=== PATIENT | female | born 1955 | race Caucasian/White ===

== ENCOUNTER → 2017-12-04 10:25 | Outpatient (CLI) | payer BC, SELFPAY ==
--- NOTE | 2017-12-04 10:37 | RAD_ITS ---
STUDY: X-RAY - PELVIS REASON FOR EXAM: Female, 62 years old. Inflammatory polyarthropathy. TECHNIQUE: One view of the pelvis was obtained. COMPARISON: None. FINDINGS: There is a non-specific bowel gas pattern. Normal visualized soft tissue structures. Normal bilateral iliac wings, sacroiliac joints and visualized sacrum. Normal visualized bilateral superior and inferior pubic rami. There is narrowing with sclerosis of the pubic symphysis. Normal ischial tuberosities. Normal visualized right femoral head. There is osteoarthritic spur formation of the right acetabular rim. There is moderate articular joint space narrowing of the right hip. Normal visualized left femoral head. Normal left acetabulum. There is moderate articular joint space narrowing of the left hip. RAD/Pelvis 1 or 2 Views IMPRESSION: Osteoarthritis of both hip joints worse on the right side. Electronically Signed: Frankie Lares MD at 14:39 EST Tel [phone], Service support ,
[2017-12-04 12:28] LABS: Erythrocyte Sedimentation Rate 35 mm/hr (0-30)
[2017-12-04 12:31] LABS: Absolute Lymphocyte Count 2.29 X10^3/ul (0.83-4.51); Basophil# 0.04 X10^3/uL; Basophil% 0.5 % (0-1); Eosinophil# 0.17 X10^3/uL; Eosinophils% 2.1 % (0-5); Hematocrit 47.2 % (37-47); Hemoglobin 15.6 g/dl (12.0-15.0); Lymphocyte # 2.29 X10^3/ul (4.0); Lymphocyte % 28.3 % (19-41); Mean Corp Hgb Conc 33.1 g/gl (32-36); Mean Corpuscular Hgb 30.8 pg (27.0-32.0); Mean Corpuscular Volume 93.1 fL (81-99); Mean Platelet Vol. 10.9 fl (6.2-12.0); Monocyte# 0.59 X10^3/uL; Monocyte% 7.3 % (0-10); Neutrophil # 5.01 X10^3/uL (2.7-7.7); Neutrophil % 61.8 % (47-70); Platelet Count 245 K/mm3 (150-450); RBC Distribution Width CV 13.5 % (11.6-14.6); RBC Distribution Width SD 45.6 fl (35.1-43.9); Red Blood Count 5.07 M/mm3 (4.2-5.4)
[2017-12-04 12:33] LABS: AST(SGOT) 16 U/L (15-37); Alanine Aminotransfer ALT/SGPT 28 U/L (12-78); Albumin, Serum 4.3 g/dL (3.4-5.0); Alkaline Phosphatase 80 U/L (45-117); Anion Gap 10 (5-15); BUN 19 mg/dL (7-18); CRP 6.39 mg/L (0.0-3.0); Calcium,Total 9.2 mg/dL (8.5-10.1); Chloride 99 mmol/L (98-107); Creatinine, Serum 1.12 mg/dL (0.55-1.02); EST Glomerular Filtration Rate 52 mL/min (>60); Est Glom Filt Rate - Afr Amer 63 mL/min (>60); Globulin 4.4 g/dL (2.2-4.2); Potassium 3.9 mmol/L (3.5-5.1); Protein, Total 8.7 g/dL (6.4-8.2); Rheumatoid Factor < 10.0 IU/mL (<15); Sodium Level 135 mmol/L (136-145)
[2017-12-04 12:35] LABS: POSITIVE COUNT NO; POSITIVE DIFFERENTIAL NO; POSITIVE MORPHOLOGY NO
[2017-12-07 12:07] LABS: SJOGREN'S Anti-SS-A test < 0.2 AI (0.0-0.9); SJOGREN'S Anti-SS-B test < 0.2 AI (0.0-0.9)
[2017-12-12 08:59] LABS: CCP IgG Antibodies 8 units (0-19); HLA B27 Negative (.); Hep B Surface Antibodies Non Reactive (.); Hep C Antibodies 0.1 s/co ratio (0.0-0.9)
[2018-04-29 10:41] LABS: Glucose 95 mg/dL (70-110)
[2018-04-29 10:42] LABS: White Blood Count 8.1 K/mm3 (4.4-11.0)
[2018-04-29 10:43] LABS: ANTINUCLEAR ANTIBODIES DIRECT Negative (Negative); HEPATITIS B SURFACE AG Negative (Negative)
== END ==
PROVIDERS: Family Provider Internal Medicine; PCP Internal Medicine; Visit Provider Internal Medicine Rheumatology
DX: M06.4 Inflammatory polyarthropathy (principal); M79.7 Fibromyalgia; M21.40 Flat foot [pes planus] (acquired), unspecified foot; G25.0 Essential tremor; I10 Essential (primary) hypertension; E78.5 Hyperlipidemia, unspecified; K58.9 Irritable bowel syndrome, unspecified; F41.9 Anxiety disorder, unspecified; Z86.69 Personal history of other diseases of the nervous system and sense organs
CPT/HCPCS: 36415; 72170; 80053; 81374; 85025; 85652; 86038; 86140; 86200; 86235; 86431; 86706; 86803; 87340

== ENCOUNTER → 2018-05-04 10:57 | Outpatient (CLI) | payer BC, SELFPAY ==
[2018-05-04 12:20] LABS: Absolute Lymphocyte Count 2.64 X10^3/ul (0.83-4.51); Absolute Neutrophil Count 4.8 X10^3/uL (2.0-7.7); Basophil# 0.03 X10^3/uL; Basophil% 0.4 % (0-1); Eosinophil# 0.29 X10^3/uL; Eosinophils% 3.5 % (0-5); Hemoglobin 15.3 g/dl (12.0-15.0); Lymphocyte # 2.64 X10^3/ul (4.0); Lymphocyte % 31.8 % (19-41); Mean Corp Hgb Conc 32.6 g/gl (32-36); Mean Corpuscular Hgb 30.7 pg (27.0-32.0); Mean Corpuscular Volume 94.4 fL (81-99); Mean Platelet Vol. 10.5 fl (6.2-12.0); Monocyte# 0.56 X10^3/uL; Monocyte% 6.7 % (0-10); Neutrophil # 4.78 X10^3/uL (2.7-7.7); Neutrophil % 57.6 % (47-70); Platelet Count 264 K/mm3 (150-450); RBC Distribution Width CV 13.4 % (11.6-14.6); Red Blood Count 4.98 M/mm3 (4.2-5.4); White Blood Count 8.3 K/mm3 (4.4-11.0)
[2018-05-04 12:25] LABS: POSITIVE COUNT NO; POSITIVE DIFFERENTIAL NO; POSITIVE MORPHOLOGY NO
[2018-05-04 12:33] LABS: AST(SGOT) 20 U/L (15-37); Alanine Aminotransfer ALT/SGPT 30 U/L (13-56); Albumin, Serum 4.1 g/dL (3.2-5.0); Alkaline Phosphatase 89 U/L (45-117); Anion Gap 9 (5-15); BUN 16 mg/dL (7-18); BUN/Creat Ratio 13.8 RATIO (10-20); Calcium,Total 9.2 mg/dL (8.5-10.1); Chloride 96 mmol/L (98-107); Creatinine, Serum 1.16 mg/dL (0.55-1.02); EST Glomerular Filtration Rate 50 mL/min (>60); Est Glom Filt Rate - Afr Amer 61 mL/min (>60); Glucose 95 mg/dL (74-106); Potassium 4.9 mmol/L (3.5-5.1); Protein, Total 8.1 g/dL (6.4-8.2); Sodium Level 132 mmol/L (136-145)
== END ==
PROVIDERS: Family Provider Internal Medicine; PCP Internal Medicine; Visit Provider Internal Medicine Rheumatology
DX: M06.4 Inflammatory polyarthropathy (principal); M79.7 Fibromyalgia; M21.40 Flat foot [pes planus] (acquired), unspecified foot; K58.9 Irritable bowel syndrome, unspecified; I10 Essential (primary) hypertension; E78.5 Hyperlipidemia, unspecified; G25.0 Essential tremor; F41.9 Anxiety disorder, unspecified; Z86.69 Personal history of other diseases of the nervous system and sense organs
CPT/HCPCS: 36415; 80053; 85025

== ENCOUNTER → 2018-07-07 10:39 | Outpatient (CLI) | payer BC, SELFPAY ==
[2018-07-07 12:16] LABS: Absolute Lymphocyte Count 2.29 X10^3/ul (0.83-4.51); Absolute Neutrophil Count 5.2 X10^3/uL (2.0-7.7); Basophil# 0.04 X10^3/uL; Basophil% 0.5 % (0-1); Eosinophil# 0.18 X10^3/uL; Eosinophils% 2.1 % (0-5); Hematocrit 47.7 % (37-47); Hemoglobin 15.9 g/dl (12.0-15.0); Lymphocyte # 2.29 X10^3/ul (4.0); Lymphocyte % 27.2 % (19-41); Mean Corp Hgb Conc 33.3 g/gl (32-36); Mean Corpuscular Hgb 31.1 pg (27.0-32.0); Mean Corpuscular Volume 93.2 fL (81-99); Mean Platelet Vol. 11.1 fl (6.2-12.0); Monocyte# 0.72 X10^3/uL; Monocyte% 8.5 % (0-10); Neutrophil # 5.17 X10^3/uL (2.7-7.7); Neutrophil % 61.3 % (47-70); POSITIVE COUNT NO; POSITIVE DIFFERENTIAL NO; POSITIVE MORPHOLOGY NO; Platelet Count 249 K/mm3 (150-450); RBC Distribution Width CV 13.2 % (11.6-14.6); RBC Distribution Width SD 44.2 fl (35.1-43.9); Red Blood Count 5.12 M/mm3 (4.2-5.4); White Blood Count 8.4 K/mm3 (4.4-11.0)
[2018-07-07 12:33] LABS: AST(SGOT) 18 U/L (15-37); Alanine Aminotransfer ALT/SGPT 28 U/L (13-56); Alkaline Phosphatase 87 U/L (45-117); Anion Gap 7 (5-15); BUN 11 mg/dL (7-18); BUN/Creat Ratio 9.6 RATIO (10-20); Calcium,Total 8.9 mg/dL (8.5-10.1); Chloride 97 mmol/L (98-107); Creatinine, Serum 1.15 mg/dL (0.55-1.02); EST Glomerular Filtration Rate 51 mL/min (>60); Est Glom Filt Rate - Afr Amer 61 mL/min (>60); Globulin 4.1 g/dL (2.2-4.2); Glucose 91 mg/dL (74-106); Protein, Total 8.1 g/dL (6.4-8.2); Sodium Level 131 mmol/L (136-145)
== END ==
PROVIDERS: Family Provider Internal Medicine; PCP Internal Medicine; Visit Provider Internal Medicine Rheumatology
DX: M06.4 Inflammatory polyarthropathy (principal); M79.7 Fibromyalgia; M21.40 Flat foot [pes planus] (acquired), unspecified foot
CPT/HCPCS: 36415; 80053; 85025

== ENCOUNTER → 2018-09-27 11:40 | Outpatient (CLI) | payer BC, SELFPAY ==
[2018-09-27 14:38] LABS: Absolute Lymphocyte Count 2.65 X10^3/ul (0.83-4.51); Absolute Neutrophil Count 4.9 X10^3/uL (2.0-7.7); Basophil# 0.03 X10^3/uL; Basophil% 0.3 % (0-1); Eosinophil# 0.25 X10^3/uL; Eosinophils% 2.9 % (0-5); Hematocrit 45.7 % (37-47); Hemoglobin 14.6 g/dl (12.0-15.0); Lymphocyte # 2.65 X10^3/ul (4.0); Lymphocyte % 30.6 % (19-41); Mean Corp Hgb Conc 31.9 g/gl (32-36); Mean Corpuscular Hgb 30.5 pg (27.0-32.0); Mean Corpuscular Volume 95.4 fL (81-99); Mean Platelet Vol. 11.1 fl (6.2-12.0); Monocyte# 0.82 X10^3/uL; Monocyte% 9.5 % (0-10); Neutrophil # 4.88 X10^3/uL (2.7-7.7); Neutrophil % 56.4 % (47-70); POSITIVE COUNT NO; POSITIVE DIFFERENTIAL NO; POSITIVE MORPHOLOGY NO; Platelet Count 238 K/mm3 (150-450); RBC Distribution Width SD 47.5 fl (35.1-43.9); Red Blood Count 4.79 M/mm3 (4.2-5.4); White Blood Count 8.7 K/mm3 (4.4-11.0)
[2018-09-27 14:55] LABS: AST(SGOT) 19 U/L (15-37); Alanine Aminotransfer ALT/SGPT 32 U/L (13-56); Alkaline Phosphatase 89 U/L (45-117); Anion Gap 5 (5-15); BUN 15 mg/dL (7-18); BUN/Creat Ratio 14.4 RATIO (10-20); Calcium,Total 8.8 mg/dL (8.5-10.1); Chloride 102 mmol/L (98-107); Creatinine, Serum 1.04 mg/dL (0.55-1.02); EST Glomerular Filtration Rate 57 mL/min (>60); Est Glom Filt Rate - Afr Amer 69 mL/min (>60); Glucose 91 mg/dL (74-106); Potassium 5.2 mmol/L (3.5-5.1); Sodium Level 136 mmol/L (136-145)
== END ==
PROVIDERS: Family Provider Internal Medicine; PCP Internal Medicine; Referring Provider Internal Medicine Rheumatology; Visit Provider Internal Medicine Rheumatology
DX: M06.4 Inflammatory polyarthropathy (principal); M79.7 Fibromyalgia; M21.40 Flat foot [pes planus] (acquired), unspecified foot; K58.9 Irritable bowel syndrome, unspecified; F41.9 Anxiety disorder, unspecified
CPT/HCPCS: 36415; 80053; 85025

== ENCOUNTER → 2018-12-28 11:56 | Outpatient (CLI) | payer BC, SELFPAY ==
[2018-12-28 14:05] LABS: Absolute Lymphocyte Count 2.52 X10^3/ul (0.83-4.51); Absolute Neutrophil Count 4.8 X10^3/uL (2.0-7.7); Basophil# 0.02 X10^3/uL; Basophil% 0.2 % (0-1); Eosinophil# 0.28 X10^3/uL; Eosinophils% 3.4 % (0-5); Hematocrit 47.8 % (37-47); Hemoglobin 14.9 g/dl (12.0-15.0); Lymphocyte # 2.52 X10^3/ul (4.0); Mean Corp Hgb Conc 31.2 g/gl (32-36); Mean Corpuscular Hgb 29.8 pg (27.0-32.0); Mean Corpuscular Volume 95.6 fL (81-99); Mean Platelet Vol. 10.9 fl (6.2-12.0); Monocyte# 0.47 X10^3/uL; Monocyte% 5.8 % (0-10); Neutrophil # 4.81 X10^3/uL (2.7-7.7); Neutrophil % 59.4 % (47-70); POSITIVE COUNT NO; POSITIVE DIFFERENTIAL NO; POSITIVE MORPHOLOGY NO; Platelet Count 231 K/mm3 (150-450); RBC Distribution Width CV 13.6 % (11.6-14.6); RBC Distribution Width SD 47.5 fl (35.1-43.9); White Blood Count 8.1 K/mm3 (4.4-11.0)
[2018-12-28 14:19] LABS: AST(SGOT) 19 U/L (15-37); Alanine Aminotransfer ALT/SGPT 30 U/L (13-56); Albumin, Serum 4.2 g/dL (3.2-5.0); Alkaline Phosphatase 82 U/L (45-117); Anion Gap 7 (5-15); BUN 17 mg/dL (7-18); BUN/Creat Ratio 16.7 RATIO (10-20); Calcium,Total 8.7 mg/dL (8.5-10.1); Chloride 101 mmol/L (98-107); Creatinine, Serum 1.02 mg/dL (0.55-1.02); EST Glomerular Filtration Rate 58 mL/min (>60); Est Glom Filt Rate - Afr Amer 70 mL/min (>60); Glucose 91 mg/dL (74-106); Potassium 4.8 mmol/L (3.5-5.1); Protein, Total 8.2 g/dL (6.4-8.2); Sodium Level 135 mmol/L (136-145)
== END ==
PROVIDERS: Family Provider Internal Medicine; PCP Internal Medicine; Referring Provider Internal Medicine Rheumatology; Visit Provider Internal Medicine Rheumatology
DX: M06.4 Inflammatory polyarthropathy (principal); M79.7 Fibromyalgia; M21.40 Flat foot [pes planus] (acquired), unspecified foot; K58.9 Irritable bowel syndrome, unspecified; F41.9 Anxiety disorder, unspecified; I10 Essential (primary) hypertension; E78.5 Hyperlipidemia, unspecified; G25.0 Essential tremor; H35.30 Unspecified macular degeneration; Z86.69 Personal history of other diseases of the nervous system and sense organs
CPT/HCPCS: 36415; 80053; 85025

== ENCOUNTER → 2019-04-08 10:45 | Outpatient (CLI) | payer BC, SELFPAY ==
[2019-04-08 12:44] LABS: Absolute Lymphocyte Count 1.95 X10^3/ul (0.83-4.51); Absolute Neutrophil Count 3.2 X10^3/uL (2.0-7.7); Basophil# 0.02 X10^3/uL; Basophil% 0.3 % (0-1); Eosinophil# 0.25 X10^3/uL; Eosinophils% 4.1 % (0-5); Hematocrit 45.3 % (37-47); Hemoglobin 14.9 g/dl (12.0-15.0); Lymphocyte # 1.95 X10^3/ul (4.0); Mean Corp Hgb Conc 32.9 g/gl (32-36); Mean Corpuscular Hgb 30.4 pg (27.0-32.0); Mean Corpuscular Volume 92.4 fL (81-99); Mean Platelet Vol. 11.4 fl (6.2-12.0); Monocyte# 0.71 X10^3/uL; Monocyte% 11.6 % (0-10); Neutrophil # 3.15 X10^3/uL (2.7-7.7); Neutrophil % 51.7 % (47-70); Platelet Count 220 K/mm3 (150-450); RBC Distribution Width CV 13.6 % (11.6-14.6); RBC Distribution Width SD 45.2 fl (35.1-43.9); White Blood Count 6.1 K/mm3 (4.4-11.0)
[2019-04-08 12:47] LABS: POSITIVE COUNT NO; POSITIVE DIFFERENTIAL NO; POSITIVE MORPHOLOGY NO
[2019-04-08 13:11] LABS: AST(SGOT) 20 U/L (15-37); Alanine Aminotransfer ALT/SGPT 29 U/L (13-56); Albumin, Serum 3.9 g/dL (3.2-5.0); Alkaline Phosphatase 76 U/L (45-117); Anion Gap 7 (5-15); BUN 19 mg/dL (7-18); Calcium,Total 9.2 mg/dL (8.5-10.1); Chloride 100 mmol/L (98-107); EST Glomerular Filtration Rate 59 mL/min (>60); Est Glom Filt Rate - Afr Amer 72 mL/min (>60); Glucose 98 mg/dL (74-106); Potassium 4.3 mmol/L (3.5-5.1); Protein, Total 7.9 g/dL (6.4-8.2); Sodium Level 136 mmol/L (136-145)
== END ==
PROVIDERS: Family Provider Internal Medicine; PCP Internal Medicine; Referring Provider Internal Medicine Rheumatology; Visit Provider Internal Medicine Rheumatology
DX: M06.4 Inflammatory polyarthropathy (principal); M79.7 Fibromyalgia; Z79.899 Other long term (current) drug therapy
CPT/HCPCS: 36415; 80053; 85025

== ENCOUNTER → 2019-06-27 11:05 | Outpatient (CLI) | payer BC, SELFPAY ==
[2019-06-27 12:17] LABS: Absolute Lymphocyte Count 2.36 X10^3/uL (0.83-4.51); Absolute Neutrophil Count 6.4 X10^3/uL (2.0-7.7); Basophil# 0.07 X10^3/uL; Basophil% 0.7 % (0-1); Hematocrit 46.9 % (37-47); Hemoglobin 14.9 g/dL (12.0-15.0); Lymphocyte # 2.36 X10^3/ul (4.0); Lymphocyte % 23.6 % (19-41); Mean Corp Hgb Conc 31.8 g/dL (32-36); Mean Corpuscular Hgb 30.3 pg (27.0-32.0); Mean Corpuscular Volume 95.3 fL (81-99); Mean Platelet Vol. 10.7 fl (6.2-12.0); Monocyte# 0.91 X10^3/uL; Monocyte% 9.1 % (0-10); NRBC Flagged by Analyzer 0 % (0-5); Neutrophil # 6.44 X10^3/uL (2.7-7.7); Neutrophil % 64.2 % (47-70); Platelet Count 235 K/mm3 (150-450); RBC Distribution Width CV 13.1 % (11.6-14.6); RBC Distribution Width SD 45.9 fl (35.1-43.9); Red Blood Count 4.92 M/mm3 (4.2-5.4)
[2019-06-27 12:56] LABS: AST(SGOT) 16 U/L (15-37); Alanine Aminotransfer ALT/SGPT 28 U/L (13-56); Alkaline Phosphatase 76 U/L (45-117); Anion Gap 4 (5-15); BUN 20 mg/dL (7-18); BUN/Creat Ratio 20.6 RATIO (10-20); Calcium,Total 9.3 mg/dL (8.5-10.1); Chloride 102 mmol/L (98-107); Creatinine, Serum 0.97 mg/dL (0.55-1.02); EST Glomerular Filtration Rate 61 mL/min (>60); Est Glom Filt Rate - Afr Amer 74 mL/min (>60); Globulin 3.9 g/dL (2.2-4.2); Glucose 92 mg/dL (74-106); Potassium 4.6 mmol/L (3.5-5.1); Protein, Total 7.9 g/dL (6.4-8.2); Sodium Level 137 mmol/L (136-145)
== END ==
PROVIDERS: Family Provider Internal Medicine; PCP Internal Medicine; Referring Provider Internal Medicine Rheumatology; Visit Provider Internal Medicine Rheumatology
DX: M06.4 Inflammatory polyarthropathy (principal); I10 Essential (primary) hypertension; E78.5 Hyperlipidemia, unspecified; M79.7 Fibromyalgia; G25.0 Essential tremor; H35.30 Unspecified macular degeneration; K58.9 Irritable bowel syndrome, unspecified; M21.40 Flat foot [pes planus] (acquired), unspecified foot; G43.909 Migraine, unspecified, not intractable, without status migrainosus; F41.9 Anxiety disorder, unspecified; Z79.899 Other long term (current) drug therapy
CPT/HCPCS: 36415; 80053; 85025

== ENCOUNTER → 2019-09-22 13:43 | Outpatient (CLI) | payer BC, SELFPAY ==
[2019-09-22 15:31] LABS: Absolute Lymphocyte Count 2.56 X10^3/uL (0.83-4.51); Absolute Neutrophil Count 5.4 X10^3/uL (2.0-7.7); Basophil# 0.08 X10^3/uL; Basophil% 0.9 % (0-1); Eosinophil# 0.22 X10^3/uL; Eosinophils% 2.4 % (0-5); Hematocrit 46.2 % (37-47); Hemoglobin 14.9 g/dL (12.0-15.0); Lymphocyte # 2.56 X10^3/ul (4.0); Lymphocyte % 28.3 % (19-41); Mean Corp Hgb Conc 32.3 g/dL (32-36); Mean Corpuscular Hgb 30.7 pg (27.0-32.0); Mean Corpuscular Volume 95.1 fL (81-99); Mean Platelet Vol. 10.4 fl (6.2-12.0); Monocyte% 8.8 % (0-10); NRBC Flagged by Analyzer 0 % (0-5); Neutrophil # 5.37 X10^3/uL (2.7-7.7); Neutrophil % 59.3 % (47-70); Platelet Count 253 K/mm3 (150-450); RBC Distribution Width SD 45.5 fl (35.1-43.9); Red Blood Count 4.86 M/mm3 (4.2-5.4); White Blood Count 9.1 K/mm3 (4.4-11.0)
[2019-09-22 15:46] LABS: AST(SGOT) 17 U/L (15-37); Alanine Aminotransfer ALT/SGPT 29 U/L (13-56); Alkaline Phosphatase 80 U/L (45-117); Anion Gap 9 (5-15); BUN 14 mg/dL (7-18); BUN/Creat Ratio 15.5 RATIO (10-20); Calcium,Total 8.8 mg/dL (8.5-10.1); Chloride 104 mmol/L (98-107); Creatinine, Serum 0.91 mg/dL (0.55-1.02); EST Glomerular Filtration Rate 66 mL/min (>60); Est Glom Filt Rate - Afr Amer 80 mL/min (>60); Glucose 78 mg/dL (74-106); Potassium 4.2 mmol/L (3.5-5.1); Sodium Level 139 mmol/L (136-145)
== END ==
PROVIDERS: Family Provider Internal Medicine; PCP Internal Medicine; Referring Provider Internal Medicine Rheumatology; Visit Provider Internal Medicine Rheumatology
DX: M06.4 Inflammatory polyarthropathy (principal); M79.7 Fibromyalgia; I10 Essential (primary) hypertension; E78.5 Hyperlipidemia, unspecified; M21.40 Flat foot [pes planus] (acquired), unspecified foot; K58.9 Irritable bowel syndrome, unspecified; G25.0 Essential tremor; H35.30 Unspecified macular degeneration; G43.909 Migraine, unspecified, not intractable, without status migrainosus; F41.9 Anxiety disorder, unspecified; Z79.899 Other long term (current) drug therapy
CPT/HCPCS: 36415; 80053; 85025

== ENCOUNTER → 2019-12-30 13:38 | Outpatient (CLI) | payer MEDICARE, BC, SELFPAY ==
[2019-12-30 15:49] LABS: Absolute Lymphocyte Count 2.21 X10^3/uL (0.83-4.51); Absolute Neutrophil Count 5.8 X10^3/uL (2.0-7.7); Basophil# 0.06 X10^3/uL; Basophil% 0.7 % (0-1); Eosinophil# 0.23 X10^3/uL; Eosinophils% 2.6 % (0-5); Hemoglobin 14.4 g/dL (12.0-15.0); Lymphocyte # 2.21 X10^3/ul (4.0); Lymphocyte % 24.6 % (19-41); Mean Corp Hgb Conc 31.3 g/dL (32-36); Mean Corpuscular Hgb 29.5 pg (27.0-32.0); Mean Corpuscular Volume 94.3 fL (81-99); Mean Platelet Vol. 11.3 fl (6.2-12.0); Monocyte# 0.67 X10^3/uL; Monocyte% 7.5 % (0-10); NRBC Flagged by Analyzer 0 % (0-5); Neutrophil # 5.78 X10^3/uL (2.7-7.7); Neutrophil % 64.2 % (47-70); Platelet Count 220 K/mm3 (150-450); RBC Distribution Width CV 12.9 % (11.6-14.6); RBC Distribution Width SD 44.4 fl (35.1-43.9); Red Blood Count 4.88 M/mm3 (4.2-5.4)
[2019-12-30 16:04] LABS: AST(SGOT) 15 U/L (15-37); Alanine Aminotransfer ALT/SGPT 25 U/L (13-56); Albumin, Serum 4.1 g/dL (3.2-5.0); Alkaline Phosphatase 83 U/L (45-117); Anion Gap 7 (5-15); BUN 10 mg/dL (7-18); BUN/Creat Ratio 10.2 RATIO (10-20); Calcium,Total 8.9 mg/dL (8.5-10.1); Chloride 102 mmol/L (98-107); Creatinine, Serum 0.98 mg/dL (0.55-1.02); EST Glomerular Filtration Rate 60 mL/min (>60); Est Glom Filt Rate - Afr Amer 73 mL/min (>60); Glucose 85 mg/dL (74-106); Protein, Total 8.1 g/dL (6.4-8.2); Sodium Level 137 mmol/L (136-145)
== END ==
PROVIDERS: PCP Internal Medicine; Referring Provider Internal Medicine Rheumatology; Visit Provider Internal Medicine Rheumatology
DX: M06.4 Inflammatory polyarthropathy (principal); M79.7 Fibromyalgia; M21.40 Flat foot [pes planus] (acquired), unspecified foot; I10 Essential (primary) hypertension; E78.5 Hyperlipidemia, unspecified; G25.0 Essential tremor; K58.9 Irritable bowel syndrome, unspecified; H35.30 Unspecified macular degeneration; G43.909 Migraine, unspecified, not intractable, without status migrainosus; F41.9 Anxiety disorder, unspecified; Z79.899 Other long term (current) drug therapy
CPT/HCPCS: 36415; 80053; 85025

== ENCOUNTER → 2020-05-08 14:12 | Outpatient (CLI) | payer MEDICARE, BC, SELFPAY ==
[2020-05-08 18:08] LABS: Absolute Lymphocyte Count 2.33 X10^3/uL (0.83-4.51); Absolute Neutrophil Count 6.7 X10^3/uL (2.0-7.7); Basophil# 0.04 X10^3/uL; Basophil% 0.4 % (0-1); Eosinophil# 0.21 X10^3/uL; Eosinophils% 2.1 % (0-5); Hematocrit 47.9 % (37-47); Hemoglobin 15.4 g/dL (12.0-15.0); Lymphocyte # 2.33 X10^3/ul (4.0); Mean Corp Hgb Conc 32.2 g/dL (32-36); Mean Corpuscular Hgb 30.9 pg (27.0-32.0); Mean Platelet Vol. 11.1 fl (6.2-12.0); Monocyte# 0.83 X10^3/uL; Monocyte% 8.2 % (0-10); NRBC Flagged by Analyzer 0 % (0-5); Neutrophil # 6.69 X10^3/uL (2.7-7.7); Neutrophil % 65.8 % (47-70); Platelet Count 265 K/mm3 (150-450); RBC Distribution Width CV 13.1 % (11.6-14.6); Red Blood Count 4.99 M/mm3 (4.2-5.4); White Blood Count 10.2 K/mm3 (4.4-11.0)
[2020-05-08 18:33] LABS: AST(SGOT) 14 U/L (15-37); Alanine Aminotransfer ALT/SGPT 27 U/L (13-56); Albumin, Serum 4.3 g/dL (3.2-5.0); Alkaline Phosphatase 74 U/L (45-117); Anion Gap 8 (5-15); BUN 19 mg/dL (7-18); BUN/Creat Ratio 16.7 RATIO (10-20); Calcium,Total 8.9 mg/dL (8.5-10.1); Chloride 100 mmol/L (98-107); Creatinine, Serum 1.14 mg/dL (0.55-1.02); EST Glomerular Filtration Rate 51 mL/min (>60); Est Glom Filt Rate - Afr Amer 61 mL/min (>60); Globulin 4.1 g/dL (2.2-4.2); Glucose 90 mg/dL (74-106); Potassium 3.7 mmol/L (3.5-5.1); Protein, Total 8.4 g/dL (6.4-8.2); Sodium Level 135 mmol/L (136-145)
== END ==
PROVIDERS: PCP Internal Medicine; Referring Provider Internal Medicine Rheumatology; Visit Provider Internal Medicine Rheumatology
DX: M06.4 Inflammatory polyarthropathy (principal); M79.7 Fibromyalgia; M18.12 Unilateral primary osteoarthritis of first carpometacarpal joint, left hand; M21.40 Flat foot [pes planus] (acquired), unspecified foot; K58.9 Irritable bowel syndrome, unspecified; I10 Essential (primary) hypertension; E78.5 Hyperlipidemia, unspecified; G25.0 Essential tremor; H35.30 Unspecified macular degeneration; G43.909 Migraine, unspecified, not intractable, without status migrainosus; F41.9 Anxiety disorder, unspecified; Z79.899 Other long term (current) drug therapy
CPT/HCPCS: 36415; 80053; 85025

== ENCOUNTER → 2020-08-03 14:19 | Outpatient (CLI) | payer MEDICARE, BC, SELFPAY ==
[2020-08-03 18:14] LABS: Absolute Lymphocyte Count 2.28 X10^3/uL (0.83-4.51); Absolute Neutrophil Count 4.2 X10^3/uL (2.0-7.7); Basophil# 0.04 X10^3/uL; Basophil% 0.5 % (0-1); Eosinophil# 0.25 X10^3/uL; Eosinophils% 3.4 % (0-5); Hematocrit 47.9 % (37-47); Hemoglobin 14.8 g/dL (12.0-15.0); Lymphocyte # 2.28 X10^3/ul (4.0); Lymphocyte % 30.6 % (19-41); Mean Corp Hgb Conc 30.9 g/dL (32-36); Mean Corpuscular Hgb 30.3 pg (27.0-32.0); Mean Corpuscular Volume 98.2 fL (81-99); Mean Platelet Vol. 11.2 fl (6.2-12.0); Monocyte# 0.62 X10^3/uL; Monocyte% 8.3 % (0-10); NRBC Flagged by Analyzer 0 % (0-5); Neutrophil # 4.24 X10^3/uL (2.7-7.7); Neutrophil % 56.9 % (47-70); Platelet Count 242 K/mm3 (150-450); RBC Distribution Width CV 13.1 % (11.6-14.6); RBC Distribution Width SD 46.8 fl (35.1-43.9); Red Blood Count 4.88 M/mm3 (4.2-5.4); White Blood Count 7.5 K/mm3 (4.4-11.0)
[2020-08-03 18:30] LABS: ALB/GLOB Ratio 1.1 RATIO (0.9-2.4); AST(SGOT) 24 U/L (15-37); Alanine Aminotransfer ALT/SGPT 39 U/L (13-56); Albumin, Serum 4.2 g/dL (3.2-5.0); Alkaline Phosphatase 78 U/L (45-117); Anion Gap 5 (5-15); BUN 14 mg/dL (7-18); BUN/Creat Ratio 14.3 RATIO (10-20); Calcium,Total 8.8 mg/dL (8.5-10.1); Chloride 100 mmol/L (98-107); Creatinine, Serum 0.98 mg/dL (0.55-1.02); EST Glomerular Filtration Rate 60 mL/min (>60); Est Glom Filt Rate - Afr Amer 73 mL/min (>60); Globulin 3.8 g/dL (2.2-4.2); Glucose 78 mg/dL (74-106); Sodium Level 134 mmol/L (136-145)
== END ==
PROVIDERS: PCP Internal Medicine; Referring Provider Internal Medicine Rheumatology; Visit Provider Internal Medicine Rheumatology
DX: M06.4 Inflammatory polyarthropathy (principal); M79.7 Fibromyalgia; M18.12 Unilateral primary osteoarthritis of first carpometacarpal joint, left hand; M21.40 Flat foot [pes planus] (acquired), unspecified foot; K58.9 Irritable bowel syndrome, unspecified; I10 Essential (primary) hypertension; E78.5 Hyperlipidemia, unspecified; G25.0 Essential tremor; H35.30 Unspecified macular degeneration; G43.909 Migraine, unspecified, not intractable, without status migrainosus; F41.9 Anxiety disorder, unspecified; Z79.899 Other long term (current) drug therapy
CPT/HCPCS: 36415; 80053; 85025

== ENCOUNTER → 2020-10-23 14:18 | Outpatient (CLI) | payer MEDICARE, BC, SELFPAY ==
[2020-10-23 17:50] LABS: Absolute Neutrophil Count 4.6 X10^3/uL (2.0-7.7); Basophil# 0.04 X10^3/uL; Basophil% 0.5 % (0-1); Eosinophil# 0.25 X10^3/uL; Eosinophils% 2.9 % (0-5); Hematocrit 42.7 % (37-47); Hemoglobin 13.3 g/dL (12.0-15.0); Lymphocyte % 34.6 % (19-41); Mean Corp Hgb Conc 31.1 g/dL (32-36); Mean Corpuscular Hgb 29.5 pg (27.0-32.0); Mean Corpuscular Volume 94.7 fL (81-99); Mean Platelet Vol. 10.4 fl (6.2-12.0); Monocyte# 0.71 X10^3/uL; Monocyte% 8.2 % (0-10); NRBC Flagged by Analyzer 0 % (0-5); Neutrophil # 4.63 X10^3/uL (2.7-7.7); Neutrophil % 53.5 % (47-70); Platelet Count 252 K/mm3 (150-450); RBC Distribution Width CV 13.2 % (11.6-14.6); RBC Distribution Width SD 46.8 fl (35.1-43.9); Red Blood Count 4.51 M/mm3 (4.2-5.4); White Blood Count 8.7 K/mm3 (4.4-11.0)
[2020-10-23 18:10] LABS: AST(SGOT) 15 U/L (15-37); Alanine Aminotransfer ALT/SGPT 28 U/L (13-56); Alkaline Phosphatase 71 U/L (45-117); Anion Gap 9 (5-15); BUN 21 mg/dL (7-18); BUN/Creat Ratio 21.2 RATIO (10-20); Calcium,Total 8.7 mg/dL (8.5-10.1); Chloride 103 mmol/L (98-107); Creatinine, Serum 0.99 mg/dL (0.55-1.02); EST Glomerular Filtration Rate 60 mL/min (>60); Est Glom Filt Rate - Afr Amer 72 mL/min (>60); Glucose 77 mg/dL (74-106); Potassium 4.1 mmol/L (3.5-5.1); Sodium Level 136 mmol/L (136-145)
== END ==
PROVIDERS: PCP Internal Medicine; Referring Provider Internal Medicine Rheumatology; Visit Provider Internal Medicine Rheumatology
DX: M06.4 Inflammatory polyarthropathy (principal); M79.7 Fibromyalgia; M18.12 Unilateral primary osteoarthritis of first carpometacarpal joint, left hand; M21.40 Flat foot [pes planus] (acquired), unspecified foot; K58.9 Irritable bowel syndrome, unspecified; I10 Essential (primary) hypertension; E78.5 Hyperlipidemia, unspecified; G25.0 Essential tremor; H35.30 Unspecified macular degeneration; G43.909 Migraine, unspecified, not intractable, without status migrainosus; F41.9 Anxiety disorder, unspecified; Z79.899 Other long term (current) drug therapy
CPT/HCPCS: 36415; 80053; 85025

== ENCOUNTER → 2021-01-25 13:45 | Outpatient (CLI) | payer MEDICARE, BC, SELFPAY ==
[2021-01-25 15:25] LABS: Absolute Lymphocyte Count 2.64 X10^3/uL (0.83-4.51); Basophil# 0.06 X10^3/uL; Basophil% 0.6 % (0-1); Eosinophil# 0.24 X10^3/uL; Eosinophils% 2.5 % (0-5); Hematocrit 46.8 % (37-47); Hemoglobin 14.8 g/dL (12.0-15.0); Lymphocyte # 2.64 X10^3/ul (4.0); Mean Corp Hgb Conc 31.6 g/dL (32-36); Mean Corpuscular Hgb 30.3 pg (27.0-32.0); Mean Corpuscular Volume 95.7 fL (81-99); Mean Platelet Vol. 10.2 fl (6.2-12.0); Monocyte# 0.85 X10^3/uL; Monocyte% 8.7 % (0-10); NRBC Flagged by Analyzer 0 % (0-5); Neutrophil # 5.96 X10^3/uL (2.7-7.7); Neutrophil % 60.9 % (47-70); Platelet Count 261 K/mm3 (150-450); RBC Distribution Width CV 12.4 % (11.6-14.6); RBC Distribution Width SD 43.8 fl (35.1-43.9); Red Blood Count 4.89 M/mm3 (4.2-5.4); White Blood Count 9.8 K/mm3 (4.4-11.0)
[2021-01-25 15:38] LABS: AST(SGOT) 16 U/L (15-37); Alanine Aminotransfer ALT/SGPT 34 U/L (13-56); Albumin, Serum 4.1 g/dL (3.2-5.0); Alkaline Phosphatase 71 U/L (45-117); Anion Gap 9 (5-15); BUN 23 mg/dL (7-18); BUN/Creat Ratio 21.9 RATIO (10-20); Calcium,Total 9.4 mg/dL (8.5-10.1); Chloride 101 mmol/L (98-107); Creatinine, Serum 1.05 mg/dL (0.55-1.02); EST Glomerular Filtration Rate 56 mL/min (>60); Est Glom Filt Rate - Afr Amer 67 mL/min (>60); Glucose 99 mg/dL (74-106); Potassium 4.6 mmol/L (3.5-5.1); Protein, Total 8.1 g/dL (6.4-8.2); Sodium Level 135 mmol/L (136-145)
== END ==
PROVIDERS: PCP Internal Medicine; Referring Provider Internal Medicine Rheumatology; Visit Provider Internal Medicine Rheumatology
DX: M06.4 Inflammatory polyarthropathy (principal); M79.7 Fibromyalgia; M18.12 Unilateral primary osteoarthritis of first carpometacarpal joint, left hand; M21.40 Flat foot [pes planus] (acquired), unspecified foot; I10 Essential (primary) hypertension; E78.5 Hyperlipidemia, unspecified; G25.0 Essential tremor; K58.9 Irritable bowel syndrome, unspecified; F41.9 Anxiety disorder, unspecified; H35.30 Unspecified macular degeneration; G43.909 Migraine, unspecified, not intractable, without status migrainosus; Z79.899 Other long term (current) drug therapy
CPT/HCPCS: 36415; 80053; 85025

== ENCOUNTER → 2021-04-12 12:59 | Outpatient (CLI) | payer MEDICARE, BC, SELFPAY ==
[2021-04-12 14:35] LABS: Absolute Lymphocyte Count 2.14 X10^3/uL (0.83-4.51); Absolute Neutrophil Count 5.8 X10^3/uL (2.0-7.7); Basophil# 0.07 X10^3/uL; Basophil% 0.8 % (0-1); Eosinophil# 0.18 X10^3/uL; Hematocrit 44.8 % (37-47); Hemoglobin 14.3 g/dL (12.0-15.0); Lymphocyte # 2.14 X10^3/ul (0.83-4.51); Lymphocyte % 23.9 % (19-41); Mean Corp Hgb Conc 31.9 g/dL (32-36); Mean Corpuscular Hgb 30.5 pg (27.0-32.0); Mean Corpuscular Volume 95.5 fL (81-99); Mean Platelet Vol. 10.5 fl (6.2-12.0); Monocyte# 0.77 X10^3/uL; Monocyte% 8.6 % (0-10); NRBC Flagged by Analyzer 0 % (0-5); Neutrophil # 5.76 X10^3/uL (2.7-7.7); Neutrophil % 64.3 % (47-70); Platelet Count 251 K/mm3 (150-450); RBC Distribution Width CV 13.2 % (11.6-14.6); Red Blood Count 4.69 M/mm3 (4.2-5.4)
[2021-04-12 14:57] LABS: AST(SGOT) 20 U/L (15-37); Alanine Aminotransfer ALT/SGPT 34 U/L (13-56); Albumin, Serum 4.2 g/dL (3.2-5.0); Alkaline Phosphatase 67 U/L (45-117); Anion Gap 9 (5-15); BUN 16 mg/dL (7-18); Chloride 103 mmol/L (98-107); Creatinine, Serum 1.07 mg/dL (0.55-1.02); EST Glomerular Filtration Rate 54 mL/min (>60); Est Glom Filt Rate - Afr Amer 66 mL/min (>60); Glucose 98 mg/dL (74-106); Potassium 4.2 mmol/L (3.5-5.1); Protein, Total 8.2 g/dL (6.4-8.2); Sodium Level 135 mmol/L (136-145)
== END ==
PROVIDERS: PCP Internal Medicine; Referring Provider Internal Medicine Rheumatology; Visit Provider Internal Medicine Rheumatology
DX: M06.4 Inflammatory polyarthropathy (principal); M79.7 Fibromyalgia; M18.12 Unilateral primary osteoarthritis of first carpometacarpal joint, left hand; M21.40 Flat foot [pes planus] (acquired), unspecified foot; K58.9 Irritable bowel syndrome, unspecified; F41.9 Anxiety disorder, unspecified; I10 Essential (primary) hypertension; E78.5 Hyperlipidemia, unspecified; G25.0 Essential tremor; H35.30 Unspecified macular degeneration; G43.909 Migraine, unspecified, not intractable, without status migrainosus; Z79.899 Other long term (current) drug therapy
CPT/HCPCS: 36415; 80053; 85025

== ENCOUNTER → 2021-07-10 11:23 | Outpatient (CLI) | payer MEDICARE, BC, SELFPAY ==
[2021-07-10 15:03] LABS: Absolute Lymphocyte Count 2.11 X10^3/uL (0.83-4.51); Absolute Neutrophil Count 4.4 X10^3/uL (2.0-7.7); Basophil# 0.03 X10^3/uL; Basophil% 0.4 % (0-1); Eosinophil# 0.14 X10^3/uL; Eosinophils% 1.9 % (0-5); Hematocrit 43.7 % (37-47); Hemoglobin 14.1 g/dL (12.0-15.0); Lymphocyte # 2.11 X10^3/ul (0.83-4.51); Lymphocyte % 29.1 % (19-41); Mean Corp Hgb Conc 32.3 g/dL (32-36); Mean Corpuscular Hgb 30.7 pg (27.0-32.0); Mean Platelet Vol. 10.8 fl (6.2-12.0); Monocyte# 0.48 X10^3/uL; Monocyte% 6.6 % (0-10); NRBC Flagged by Analyzer 0 % (0-5); Neutrophil # 4.44 X10^3/uL (2.7-7.7); Neutrophil % 61.4 % (47-70); Platelet Count 227 K/mm3 (150-450); RBC Distribution Width CV 12.8 % (11.6-14.6); RBC Distribution Width SD 44.2 fl (35.1-43.9); White Blood Count 7.2 K/mm3 (4.4-11.0)
[2021-07-10 15:39] LABS: AST(SGOT) 15 U/L (15-37); Alanine Aminotransfer ALT/SGPT 26 U/L (13-56); Albumin, Serum 4.2 g/dL (3.2-5.0); Alkaline Phosphatase 75 U/L (45-117); Anion Gap 7 (5-15); BUN 12 mg/dL (7-18); BUN/Creat Ratio 12.3 RATIO (10-20); Calcium,Total 9.3 mg/dL (8.5-10.1); Chloride 103 mmol/L (98-107); Creatinine, Serum 0.97 mg/dL (0.55-1.02); EST Glomerular Filtration Rate 61 mL/min (>60); Est Glom Filt Rate - Afr Amer 74 mL/min (>60); Globulin 4.1 g/dL (2.2-4.2); Glucose 85 mg/dL (74-106); Potassium 3.8 mmol/L (3.5-5.1); Protein, Total 8.3 g/dL (6.4-8.2); Sodium Level 137 mmol/L (136-145)
== END ==
PROVIDERS: PCP Internal Medicine; Referring Provider Internal Medicine Rheumatology; Visit Provider Internal Medicine Rheumatology
DX: M06.4 Inflammatory polyarthropathy (principal); Z79.899 Other long term (current) drug therapy; M79.7 Fibromyalgia; M35.00 Sjogren syndrome, unspecified; M18.12 Unilateral primary osteoarthritis of first carpometacarpal joint, left hand
CPT/HCPCS: 36415; 80053; 85025

== ENCOUNTER → 2021-10-30 09:39 | Outpatient (CLI) | payer MEDICARE, BC, SELFPAY ==
[2021-10-30 12:14] LABS: Absolute Lymphocyte Count 1.97 X10^3/uL (0.83-4.51); Absolute Neutrophil Count 3.9 X10^3/uL (2.0-7.7); Basophil# 0.03 X10^3/uL; Basophil% 0.5 % (0-1); Eosinophil# 0.19 X10^3/uL; Eosinophils% 2.9 % (0-5); Hematocrit 44.4 % (37-47); Lymphocyte # 1.97 X10^3/ul (0.83-4.51); Lymphocyte % 29.8 % (19-41); Mean Corp Hgb Conc 31.5 g/dL (32-36); Mean Corpuscular Hgb 30.2 pg (27.0-32.0); Mean Corpuscular Volume 95.7 fL (81-99); Mean Platelet Vol. 10.9 fl (6.2-12.0); Monocyte# 0.51 X10^3/uL; Monocyte% 7.7 % (0-10); NRBC Flagged by Analyzer 0 % (0-5); Neutrophil # 3.88 X10^3/uL (2.7-7.7); Neutrophil % 58.8 % (47-70); Platelet Count 225 K/mm3 (150-450); RBC Distribution Width SD 45.5 fl (35.1-43.9); Red Blood Count 4.64 M/mm3 (4.2-5.4); White Blood Count 6.6 K/mm3 (4.4-11.0)
[2021-10-30 12:38] LABS: AST(SGOT) 22 U/L (15-37); Alanine Aminotransfer ALT/SGPT 38 U/L (13-56); Albumin, Serum 4.1 g/dL (3.2-5.0); Alkaline Phosphatase 68 U/L (45-117); Anion Gap 5 (5-15); BUN 15 mg/dL (7-18); BUN/Creat Ratio 15.2 RATIO (10-20); Calcium,Total 9.3 mg/dL (8.5-10.1); Chloride 106 mmol/L (98-107); Creatinine, Serum 0.99 mg/dL (0.55-1.02); EST Glomerular Filtration Rate 60 mL/min (>60); Est Glom Filt Rate - Afr Amer 72 mL/min (>60); Globulin 4.2 g/dL (2.2-4.2); Glucose 91 mg/dL (74-106); Potassium 3.8 mmol/L (3.5-5.1); Protein, Total 8.3 g/dL (6.4-8.2); Sodium Level 138 mmol/L (136-145)
== END ==
PROVIDERS: PCP Internal Medicine; Referring Provider Internal Medicine Rheumatology; Visit Provider Internal Medicine Rheumatology
DX: M06.4 Inflammatory polyarthropathy (principal); M18.12 Unilateral primary osteoarthritis of first carpometacarpal joint, left hand; M79.7 Fibromyalgia; M35.00 Sjogren syndrome, unspecified; Z79.899 Other long term (current) drug therapy
CPT/HCPCS: 36415; 80053; 85025

== ENCOUNTER 2022-02-07 10:54 | Outpatient (CLI) | payer MEDICARE, BC, SELFPAY ==
[2022-02-07 12:21] LABS: Absolute Lymphocyte Count 2.04 X10^3/uL (0.83-4.51); Absolute Neutrophil Count 4.4 X10^3/uL (2.0-7.7); Basophil# 0.04 X10^3/uL; Basophil% 0.6 % (0-1); Eosinophil# 0.13 X10^3/uL; Eosinophils% 1.8 % (0-5); Hematocrit 45.5 % (37-47); Hemoglobin 14.6 g/dL (12.0-15.0); Lymphocyte # 2.04 X10^3/ul (0.83-4.51); Lymphocyte % 28.3 % (19-41); Mean Corp Hgb Conc 32.1 g/dL (32-36); Mean Corpuscular Volume 93.6 fL (81-99); Mean Platelet Vol. 10.9 fl (6.2-12.0); Monocyte# 0.61 X10^3/uL; Monocyte% 8.5 % (0-10); NRBC Flagged by Analyzer 0 % (0-5); Neutrophil # 4.35 X10^3/uL (2.7-7.7); Neutrophil % 60.4 % (47-70); Platelet Count 212 K/mm3 (150-450); RBC Distribution Width CV 12.8 % (11.6-14.6); RBC Distribution Width SD 43.8 fl (35.1-43.9); Red Blood Count 4.86 M/mm3 (4.2-5.4); White Blood Count 7.2 K/mm3 (4.4-11.0)
[2022-02-07 12:35] LABS: ALB/GLOB Ratio 1.1 RATIO (0.9-2.4); AST(SGOT) 17 U/L (15-37); Alanine Aminotransfer ALT/SGPT 30 U/L (13-56); Albumin, Serum 4.2 g/dL (3.2-5.0); Alkaline Phosphatase 65 U/L (45-117); Anion Gap 5 (5-15); BUN 17 mg/dL (7-18); Calcium,Total 9.6 mg/dL (8.5-10.1); Chloride 104 mmol/L (98-107); Creatinine, Serum 1.06 mg/dL (0.55-1.02); EST Glomerular Filtration Rate 55 mL/min (>60); Est Glom Filt Rate - Afr Amer 66 mL/min (>60); Globulin 3.8 g/dL (2.2-4.2); Glucose 102 mg/dL (74-106); Potassium 4.5 mmol/L (3.5-5.1); Sodium Level 135 mmol/L (136-145)
== END 2022-02-07 23:59 | disposition home or self-care (01) ==
LOC: MTLAB 10:57
PROVIDERS: PCP Internal Medicine; Referring Provider Internal Medicine Rheumatology; Visit Provider Internal Medicine Rheumatology
DX: M06.4 Inflammatory polyarthropathy (principal); M35.00 Sjogren syndrome, unspecified; M79.7 Fibromyalgia; M18.12 Unilateral primary osteoarthritis of first carpometacarpal joint, left hand; M21.40 Flat foot [pes planus] (acquired), unspecified foot; K58.9 Irritable bowel syndrome, unspecified; F41.9 Anxiety disorder, unspecified; I10 Essential (primary) hypertension; E78.5 Hyperlipidemia, unspecified; G25.0 Essential tremor; H35.30 Unspecified macular degeneration; G43.909 Migraine, unspecified, not intractable, without status migrainosus; Z79.899 Other long term (current) drug therapy
CPT/HCPCS: 36415; 80053; 85025

== ENCOUNTER → 2022-05-08 | Outpatient (CLI) | payer MEDICARE, BC, SELFPAY ==
[2022-05-08 17:52] LABS: Absolute Lymphocyte Count 2.08 X10^3/uL (0.83-4.51); Absolute Neutrophil Count 8.7 X10^3/uL (2.0-7.7); Basophil# 0.05 X10^3/uL; Basophil% 0.4 % (0-1); Eosinophil# 0.06 X10^3/uL; Eosinophils% 0.5 % (0-5); Hematocrit 45.5 % (37-47); Hemoglobin 14.8 g/dL (12.0-15.0); Lymphocyte # 2.08 X10^3/ul (0.83-4.51); Lymphocyte % 17.7 % (19-41); Mean Corp Hgb Conc 32.5 g/dL (32-36); Mean Corpuscular Hgb 30.6 pg (27.0-32.0); Mean Corpuscular Volume 94.2 fL (81-99); Mean Platelet Vol. 11.2 fl (6.2-12.0); Monocyte# 0.84 X10^3/uL; Monocyte% 7.1 % (0-10); NRBC Flagged by Analyzer 0 % (0-5); Neutrophil # 8.71 X10^3/uL (2.7-7.7); Platelet Count 231 K/mm3 (150-450); RBC Distribution Width CV 12.9 % (11.6-14.6); Red Blood Count 4.83 M/mm3 (4.2-5.4); White Blood Count 11.8 K/mm3 (4.4-11.0)
[2022-05-08 18:08] LABS: ALB/GLOB Ratio 1.1 RATIO (0.9-2.4); AST(SGOT) 20 U/L (15-37); Alanine Aminotransfer ALT/SGPT 29 U/L (13-56); Albumin, Serum 4.2 g/dL (3.2-5.0); Alkaline Phosphatase 63 U/L (45-117); Anion Gap 8 (5-15); BUN 15 mg/dL (7-18); BUN/Creat Ratio 15.1 RATIO (10-20); Calcium,Total 9.5 mg/dL (8.5-10.1); Chloride 105 mmol/L (98-107); Creatinine, Serum 0.99 mg/dL (0.55-1.02); EST Glomerular Filtration Rate 59 mL/min (>60); Est Glom Filt Rate - Afr Amer 72 mL/min (>60); Globulin 3.9 g/dL (2.2-4.2); Glucose 82 mg/dL (74-106); Protein, Total 8.1 g/dL (6.4-8.2); Sodium Level 140 mmol/L (136-145)
== END | disposition home or self-care (01) ==
LOC: MTLAB 14:19
PROVIDERS: PCP Internal Medicine; Referring Provider Internal Medicine Rheumatology; Visit Provider Internal Medicine Rheumatology
DX: M06.4 Inflammatory polyarthropathy (principal); M35.00 Sjogren syndrome, unspecified; M79.7 Fibromyalgia; M18.12 Unilateral primary osteoarthritis of first carpometacarpal joint, left hand; M21.40 Flat foot [pes planus] (acquired), unspecified foot; K58.9 Irritable bowel syndrome, unspecified; F41.9 Anxiety disorder, unspecified; I10 Essential (primary) hypertension; E78.5 Hyperlipidemia, unspecified; G25.0 Essential tremor; H35.30 Unspecified macular degeneration; G43.909 Migraine, unspecified, not intractable, without status migrainosus; Z79.899 Other long term (current) drug therapy
CPT/HCPCS: 36415; 80053; 85025

== ENCOUNTER → 2022-08-08 | Outpatient (CLI) | payer MEDICARE, BC, SELFPAY ==
[2022-08-08 15:12] LABS: Absolute Lymphocyte Count 1.95 X10^3/uL (0.83-4.51); Absolute Neutrophil Count 5.6 X10^3/uL (2.0-7.7); Basophil# 0.06 X10^3/uL; Basophil% 0.7 % (0-1); Eosinophils% 2.3 % (0-5); Hematocrit 45.4 % (37-47); Hemoglobin 14.5 g/dL (12.0-15.0); Lymphocyte # 1.95 X10^3/ul (0.83-4.51); Lymphocyte % 22.8 % (19-41); Mean Corp Hgb Conc 31.9 g/dL (32-36); Mean Corpuscular Hgb 30.9 pg (27.0-32.0); Mean Corpuscular Volume 96.8 fL (81-99); Mean Platelet Vol. 10.9 fl (6.2-12.0); Monocyte# 0.66 X10^3/uL; Monocyte% 7.7 % (0-10); NRBC Flagged by Analyzer 0 % (0-5); Neutrophil # 5.63 X10^3/uL (2.7-7.7); Platelet Count 222 K/mm3 (150-450); RBC Distribution Width CV 12.7 % (11.6-14.6); RBC Distribution Width SD 44.9 fl (35.1-43.9); Red Blood Count 4.69 M/mm3 (4.2-5.4); White Blood Count 8.5 K/mm3 (4.4-11.0)
[2022-08-08 15:29] LABS: AST(SGOT) 16 U/L (15-37); Alanine Aminotransfer ALT/SGPT 27 U/L (13-56); Albumin, Serum 3.9 g/dL (3.2-5.0); Alkaline Phosphatase 64 U/L (45-117); Anion Gap 8 (5-15); BUN 16 mg/dL (7-18); BUN/Creat Ratio 15.8 RATIO (10-20); Calcium,Total 9.1 mg/dL (8.5-10.1); Chloride 102 mmol/L (98-107); Creatinine, Serum 1.01 mg/dL (0.55-1.02); EST Glomerular Filtration Rate 58 mL/min (>60); Est Glom Filt Rate - Afr Amer 70 mL/min (>60); Globulin 3.8 g/dL (2.2-4.2); Glucose 89 mg/dL (74-106); Potassium 4.1 mmol/L (3.5-5.1); Protein, Total 7.7 g/dL (6.4-8.2); Sodium Level 137 mmol/L (136-145)
== END | disposition home or self-care (01) ==
LOC: MTLAB 11:20
PROVIDERS: PCP Internal Medicine; Referring Provider Internal Medicine Rheumatology; Visit Provider Internal Medicine Rheumatology
DX: M06.4 Inflammatory polyarthropathy (principal); M35.00 Sjogren syndrome, unspecified; M79.7 Fibromyalgia; M18.12 Unilateral primary osteoarthritis of first carpometacarpal joint, left hand; M21.40 Flat foot [pes planus] (acquired), unspecified foot; K58.9 Irritable bowel syndrome, unspecified; F41.9 Anxiety disorder, unspecified; I10 Essential (primary) hypertension; E78.5 Hyperlipidemia, unspecified; G25.0 Essential tremor; H35.30 Unspecified macular degeneration; G43.909 Migraine, unspecified, not intractable, without status migrainosus; Z79.899 Other long term (current) drug therapy
CPT/HCPCS: 36415; 80053; 85025

== ENCOUNTER → 2022-10-03 | Outpatient (CLI) | payer MEDICARE, BC, SELFPAY ==
[2022-10-03 14:56] LABS: Absolute Lymphocyte Count 2.53 X10^3/uL (0.83-4.51); Absolute Neutrophil Count 6.7 X10^3/uL (2.0-7.7); Basophil# 0.04 X10^3/uL; Basophil% 0.4 % (0-1); Eosinophil# 0.23 X10^3/uL; Eosinophils% 2.3 % (0-5); Hemoglobin 14.1 g/dL (12.0-15.0); Lymphocyte # 2.53 X10^3/ul (0.83-4.51); Lymphocyte % 24.8 % (19-41); Mean Corpuscular Hgb 31.3 pg (27.0-32.0); Mean Corpuscular Volume 97.6 fL (81-99); Mean Platelet Vol. 10.6 fl (6.2-12.0); Monocyte# 0.64 X10^3/uL; Monocyte% 6.3 % (0-10); NRBC Flagged by Analyzer 0 % (0-5); Neutrophil # 6.74 X10^3/uL (2.7-7.7); Platelet Count 248 K/mm3 (150-450); RBC Distribution Width CV 13.7 % (11.6-14.6); RBC Distribution Width SD 49.3 fl (35.1-43.9); Red Blood Count 4.51 M/mm3 (4.2-5.4); White Blood Count 10.2 K/mm3 (4.4-11.0)
[2022-10-03 15:09] LABS: ALB/GLOB Ratio 1.4 RATIO (0.9-2.4); AST(SGOT) 10 U/L (15-37); Alanine Aminotransfer ALT/SGPT 22 U/L (13-56); Albumin, Serum 4.4 g/dL (3.2-5.0); Alkaline Phosphatase 70 U/L (45-117); Anion Gap 6 (5-15); BUN 17 mg/dL (7-18); BUN/Creat Ratio 15.3 RATIO (10-20); Calcium,Total 9.9 mg/dL (8.5-10.1); Chloride 103 mmol/L (98-107); Creatinine, Serum 1.11 mg/dL (0.55-1.02); EST Glomerular Filtration Rate 52 mL/min (>60); Est Glom Filt Rate - Afr Amer 63 mL/min (>60); Globulin 3.2 g/dL (2.2-4.2); Glucose 90 mg/dL (74-106); Potassium 5.2 mmol/L (3.5-5.1); Protein, Total 7.6 g/dL (6.4-8.2); Sodium Level 139 mmol/L (136-145)
== END | disposition home or self-care (01) ==
LOC: MTLAB 11:22
PROVIDERS: PCP Internal Medicine; Referring Provider Internal Medicine Rheumatology; Visit Provider Internal Medicine Rheumatology
DX: M06.4 Inflammatory polyarthropathy (principal); M35.00 Sjogren syndrome, unspecified; M79.7 Fibromyalgia; I10 Essential (primary) hypertension; E78.5 Hyperlipidemia, unspecified; Z79.899 Other long term (current) drug therapy
CPT/HCPCS: 36415; 80053; 85025

== ENCOUNTER → 2022-12-08 | Outpatient (CLI) | payer MEDICARE, BC, SELFPAY ==
[2022-12-08 12:14] LABS: Absolute Lymphocyte Count 2.33 X10^3/uL (0.83-4.51); Absolute Neutrophil Count 4.4 X10^3/uL (2.0-7.7); Basophil# 0.04 X10^3/uL; Basophil% 0.5 % (0-1); Eosinophil# 0.29 X10^3/uL; Eosinophils% 3.9 % (0-5); Hematocrit 43.5 % (37-47); Hemoglobin 14.2 g/dL (12.0-15.0); Lymphocyte # 2.33 X10^3/ul (0.83-4.51); Lymphocyte % 30.9 % (19-41); Mean Corp Hgb Conc 32.6 g/dL (32-36); Mean Platelet Vol. 10.4 fl (6.2-12.0); Monocyte# 0.49 X10^3/uL; Monocyte% 6.5 % (0-10); NRBC Flagged by Analyzer 0 % (0-5); Neutrophil # 4.35 X10^3/uL (2.7-7.7); Neutrophil % 57.8 % (47-70); Platelet Count 260 K/mm3 (150-450); RBC Distribution Width CV 13.5 % (11.6-14.6); RBC Distribution Width SD 48.4 fl (35.1-43.9); Red Blood Count 4.44 M/mm3 (4.2-5.4); White Blood Count 7.5 K/mm3 (4.4-11.0)
[2022-12-08 12:57] LABS: ALB/GLOB Ratio 1.1 RATIO (0.9-2.4); AST(SGOT) 15 U/L (15-37); Alanine Aminotransfer ALT/SGPT 23 U/L (13-56); Albumin, Serum 4.1 g/dL (3.2-5.0); Alkaline Phosphatase 64 U/L (45-117); Anion Gap 8 (5-15); BUN 14 mg/dL (7-18); BUN/Creat Ratio 12.8 RATIO (10-20); Calcium,Total 9.4 mg/dL (8.5-10.1); Chloride 106 mmol/L (98-107); Creatinine, Serum 1.09 mg/dL (0.55-1.02); EST Glomerular Filtration Rate 53 mL/min (>60); Est Glom Filt Rate - Afr Amer 64 mL/min (>60); Globulin 3.7 g/dL (2.2-4.2); Glucose 97 mg/dL (74-106); Potassium 4.2 mmol/L (3.5-5.1); Protein, Total 7.8 g/dL (6.4-8.2); Sodium Level 140 mmol/L (136-145)
== END | disposition home or self-care (01) ==
PROVIDERS: PCP Internal Medicine; Referring Provider Internal Medicine Rheumatology; Visit Provider Internal Medicine Rheumatology
DX: M06.4 Inflammatory polyarthropathy (principal); M79.7 Fibromyalgia; Z79.899 Other long term (current) drug therapy
CPT/HCPCS: 36415; 80053; 85025

== ENCOUNTER → 2023-02-02 | Outpatient (CLI) | payer MEDICARE, BC, SELFPAY ==
[2023-02-02 15:28] LABS: Absolute Lymphocyte Count 2.36 X10^3/uL (0.83-4.51); Absolute Neutrophil Count 4.7 X10^3/uL (2.0-7.7); Basophil# 0.04 X10^3/uL; Basophil% 0.5 % (0-1); Eosinophil# 0.23 X10^3/uL; Eosinophils% 2.9 % (0-5); Hemoglobin 14.2 g/dL (12.0-15.0); Lymphocyte # 2.36 X10^3/ul (0.83-4.51); Lymphocyte % 29.8 % (19-41); Mean Corp Hgb Conc 31.6 g/dL (32-36); Mean Corpuscular Hgb 31.6 pg (27.0-32.0); Mean Platelet Vol. 10.3 fl (6.2-12.0); Monocyte# 0.55 X10^3/uL; NRBC Flagged by Analyzer 0 % (0-5); Neutrophil % 59.4 % (47-70); Platelet Count 266 K/mm3 (150-450); RBC Distribution Width CV 13.8 % (11.6-14.6); RBC Distribution Width SD 50.8 fl (35.1-43.9); White Blood Count 7.9 K/mm3 (4.4-11.0)
[2023-02-02 16:09] LABS: ALB/GLOB Ratio 1.1 RATIO (0.9-2.4); AST(SGOT) 28 U/L (15-37); Alanine Aminotransfer ALT/SGPT 34 U/L (13-56); Albumin, Serum 4.1 g/dL (3.2-5.0); Alkaline Phosphatase 66 U/L (45-117); Anion Gap 6 (5-15); BUN 13 mg/dL (7-18); BUN/Creat Ratio 13.1 RATIO (10-20); Calcium,Total 9.4 mg/dL (8.5-10.1); Chloride 105 mmol/L (98-107); Creatinine, Serum 0.99 mg/dL (0.55-1.02); EST Glomerular Filtration Rate 59 mL/min (>60); Est Glom Filt Rate - Afr Amer 72 mL/min (>60); Globulin 3.8 g/dL (2.2-4.2); Glucose 90 mg/dL (74-106); Potassium 4.7 mmol/L (3.5-5.1); Protein, Total 7.9 g/dL (6.4-8.2); Sodium Level 138 mmol/L (136-145)
== END | disposition home or self-care (01) ==
LOC: MTLAB 14:01
PROVIDERS: PCP Internal Medicine; Visit Provider Internal Medicine Rheumatology
DX: M06.4 Inflammatory polyarthropathy (principal); Z79.899 Other long term (current) drug therapy
CPT/HCPCS: 36415; 80053; 85025

== ENCOUNTER → 2023-04-27 | Outpatient (CLI) | payer MEDICARE, BC, SELFPAY ==
[2023-04-27 12:46] LABS: Absolute Lymphocyte Count 2.21 X10^3/uL (0.83-4.51); Absolute Neutrophil Count 3.1 X10^3/uL (2.0-7.7); Basophil# 0.04 X10^3/uL; Basophil% 0.7 % (0-1); Eosinophil# 0.21 X10^3/uL; Eosinophils% 3.4 % (0-5); Hemoglobin 14.3 g/dL (12.0-15.0); Lymphocyte # 2.21 X10^3/ul (0.83-4.51); Lymphocyte % 36.2 % (19-41); Mean Corp Hgb Conc 32.5 g/dL (32-36); Mean Corpuscular Hgb 32.5 pg (27.0-32.0); Mean Platelet Vol. 10.5 fl (6.2-12.0); Monocyte# 0.53 X10^3/uL; Monocyte% 8.7 % (0-10); NRBC Flagged by Analyzer 0 % (0-5); Neutrophil % 50.7 % (47-70); Platelet Count 250 K/mm3 (150-450); RBC Distribution Width CV 13.8 % (11.6-14.6); RBC Distribution Width SD 50.2 fl (35.1-43.9); White Blood Count 6.1 K/mm3 (4.4-11.0)
[2023-04-27 13:24] LABS: ALB/GLOB Ratio 1.1 RATIO (0.9-2.4); AST(SGOT) 16 U/L (15-37); Alanine Aminotransfer ALT/SGPT 31 U/L (13-56); Alkaline Phosphatase 74 U/L (45-117); Anion Gap 8 (5-15); BUN 16 mg/dL (7-18); Calcium,Total 9.3 mg/dL (8.5-10.1); Chloride 106 mmol/L (98-107); EST Glomerular Filtration Rate 59 mL/min (>60); Est Glom Filt Rate - Afr Amer 71 mL/min (>60); Globulin 3.8 g/dL (2.2-4.2); Glucose 87 mg/dL (74-106); Potassium 3.8 mmol/L (3.5-5.1); Protein, Total 7.8 g/dL (6.4-8.2); Sodium Level 139 mmol/L (136-145)
== END | disposition home or self-care (01) ==
LOC: MTLAB 09:42
PROVIDERS: PCP Internal Medicine; Referring Provider Internal Medicine Rheumatology; Visit Provider Internal Medicine Rheumatology
DX: M06.4 Inflammatory polyarthropathy (principal); M35.00 Sjogren syndrome, unspecified; M79.7 Fibromyalgia; Z79.899 Other long term (current) drug therapy
CPT/HCPCS: 36415; 80053; 85025

== ENCOUNTER → 2023-07-22 | Outpatient (CLI) | payer MEDICARE, BC, SELFPAY ==
[2023-07-22 15:38] LABS: ALB/GLOB Ratio 1.1 RATIO (0.9-2.4); AST(SGOT) 17 U/L (15-37); Alanine Aminotransfer ALT/SGPT 35 U/L (13-56); Albumin, Serum 4.2 g/dL (3.2-5.0); Alkaline Phosphatase 73 U/L (45-117); Anion Gap 5 (5-15); BUN 19 mg/dL (7-18); BUN/Creat Ratio 17.4 RATIO (10-20); Calcium,Total 9.1 mg/dL (8.5-10.1); Chloride 107 mmol/L (98-107); Creatinine, Serum 1.09 mg/dL (0.55-1.02); EST Glomerular Filtration Rate 53 mL/min (>60); Est Glom Filt Rate - Afr Amer 64 mL/min (>60); Globulin 3.7 g/dL (2.2-4.2); Glucose 90 mg/dL (74-106); Potassium 3.9 mmol/L (3.5-5.1); Protein, Total 7.9 g/dL (6.4-8.2); Sodium Level 139 mmol/L (136-145)
[2023-07-22 15:48] LABS: Absolute Lymphocyte Count 2.16 X10^3/uL (0.83-4.51); Basophil# 0.04 X10^3/uL; Basophil% 0.5 % (0-1); Eosinophil# 0.17 X10^3/uL; Eosinophils% 2.1 % (0-5); Hematocrit 45.8 % (37-47); Hemoglobin 14.7 g/dL (12.0-15.0); Lymphocyte # 2.16 X10^3/ul (0.83-4.51); Lymphocyte % 27.3 % (19-41); Mean Corp Hgb Conc 32.1 g/dL (32-36); Mean Corpuscular Volume 99.8 fL (81-99); Mean Platelet Vol. 10.8 fl (6.2-12.0); Monocyte# 0.51 X10^3/uL; Monocyte% 6.4 % (0-10); NRBC Flagged by Analyzer 0 % (0-5); Neutrophil # 5.02 X10^3/uL (2.7-7.7); Neutrophil % 63.4 % (47-70); Platelet Count 265 K/mm3 (150-450); RBC Distribution Width CV 13.7 % (11.6-14.6); RBC Distribution Width SD 49.8 fl (35.1-43.9); Red Blood Count 4.59 M/mm3 (4.2-5.4); White Blood Count 7.9 K/mm3 (4.4-11.0)
== END | disposition home or self-care (01) ==
LOC: MTLAB 11:51
PROVIDERS: PCP Internal Medicine; Referring Provider Internal Medicine Rheumatology; Visit Provider Internal Medicine Rheumatology
DX: M06.4 Inflammatory polyarthropathy (principal); M79.7 Fibromyalgia; Z79.899 Other long term (current) drug therapy
CPT/HCPCS: 36415; 80053; 85025

== ENCOUNTER → 2023-10-16 | Outpatient (CLI) | payer MEDICARE, BC, SELFPAY ==
[2023-10-16 12:43] LABS: Absolute Lymphocyte Count 3.44 X10^3/uL (0.83-4.51); Absolute Neutrophil Count 5.1 X10^3/uL (2.0-7.7); Basophil# 0.05 X10^3/uL; Basophil% 0.5 % (0-1); Eosinophil# 0.15 X10^3/uL; Eosinophils% 1.6 % (0-5); Hematocrit 44.4 % (37-47); Hemoglobin 15.2 g/dL (12.0-15.0); Lymphocyte # 3.44 X10^3/ul (0.83-4.51); Lymphocyte % 36.8 % (19-41); Mean Corp Hgb Conc 34.2 g/dL (32-36); Mean Corpuscular Hgb 33.3 pg (27.0-32.0); Mean Corpuscular Volume 97.2 fL (81-99); Monocyte# 0.62 X10^3/uL; Monocyte% 6.6 % (0-10); NRBC Flagged by Analyzer 0 % (0-5); Neutrophil # 5.07 X10^3/uL (2.7-7.7); Neutrophil % 54.2 % (47-70); Platelet Count 276 K/mm3 (150-450); RBC Distribution Width CV 13.5 % (11.6-14.6); Red Blood Count 4.57 M/mm3 (4.2-5.4); White Blood Count 9.4 K/mm3 (4.4-11.0)
[2023-10-16 13:09] LABS: ALB/GLOB Ratio 1.1 RATIO (0.9-2.4); AST(SGOT) 24 U/L (15-37); Alanine Aminotransfer ALT/SGPT 38 U/L (13-56); Albumin, Serum 4.1 g/dL (3.2-5.0); Alkaline Phosphatase 72 U/L (45-117); Anion Gap 6 (5-15); BUN 14 mg/dL (7-18); BUN/Creat Ratio 15.8 RATIO (10-20); Chloride 102 mmol/L (98-107); Creatinine, Serum 0.89 mg/dL (0.55-1.02); EST Glomerular Filtration Rate 67 mL/min (>60); Est Glom Filt Rate - Afr Amer 81 mL/min (>60); Globulin 3.8 g/dL (2.2-4.2); Glucose 79 mg/dL (74-106); Potassium 3.8 mmol/L (3.5-5.1); Protein, Total 7.9 g/dL (6.4-8.2); Sodium Level 135 mmol/L (136-145)
== END | disposition home or self-care (01) ==
LOC: MTLAB 10:49
PROVIDERS: PCP Internal Medicine; Referring Provider Internal Medicine Rheumatology; Visit Provider Internal Medicine Rheumatology
DX: M06.4 Inflammatory polyarthropathy (principal); M35.00 Sjogren syndrome, unspecified; M79.7 Fibromyalgia; M18.12 Unilateral primary osteoarthritis of first carpometacarpal joint, left hand; Z79.899 Other long term (current) drug therapy
CPT/HCPCS: 36415; 80053; 85025

== ENCOUNTER → 2024-01-20 | Outpatient (CLI) | payer MEDICARE, BC, SELFPAY ==
[2024-01-20 16:00] LABS: Absolute Lymphocyte Count 2.39 X10^3/uL (0.83-4.51); Absolute Neutrophil Count 5.3 X10^3/uL (2.0-7.7); Basophil# 0.04 X10^3/uL; Basophil% 0.5 % (0-1); Eosinophils% 2.3 % (0-5); Hemoglobin 14.7 g/dL (12.0-15.0); Lymphocyte # 2.39 X10^3/ul (0.83-4.51); Lymphocyte % 27.8 % (19-41); Mean Corp Hgb Conc 32.7 g/dL (32-36); Mean Corpuscular Hgb 32.7 pg (27.0-32.0); Mean Platelet Vol. 10.5 fl (6.2-12.0); Monocyte# 0.61 X10^3/uL; Monocyte% 7.1 % (0-10); NRBC Flagged by Analyzer 0 % (0-5); Neutrophil # 5.31 X10^3/uL (2.7-7.7); Neutrophil % 61.8 % (47-70); Platelet Count 274 K/mm3 (150-450); RBC Distribution Width CV 13.2 % (11.6-14.6); White Blood Count 8.6 K/mm3 (4.4-11.0)
[2024-01-20 16:04] LABS: ALB/GLOB Ratio 1.1 RATIO (0.9-2.4); AST(SGOT) 19 U/L (15-37); Alanine Aminotransfer ALT/SGPT 27 U/L (13-56); Albumin, Serum 4.1 g/dL (3.2-5.0); Alkaline Phosphatase 70 U/L (45-117); Anion Gap 11 (5-15); BUN 14 mg/dL (7-18); BUN/Creat Ratio 13.7 RATIO (10-20); Calcium,Total 9.3 mg/dL (8.5-10.1); Chloride 102 mmol/L (98-107); Creatinine, Serum 1.02 mg/dL (0.55-1.02); EST Glomerular Filtration Rate 57 mL/min (>60); Est Glom Filt Rate - Afr Amer 69 mL/min (>60); Globulin 3.7 g/dL (2.2-4.2); Glucose 91 mg/dL (74-106); Potassium 3.6 mmol/L (3.5-5.1); Protein, Total 7.8 g/dL (6.4-8.2); Sodium Level 139 mmol/L (136-145)
--- OUTSIDE RECORDS SUMMARY | 2024-01-20 20:19 | XMS RPT_ITS | CCD ---
Author Name Unknown Address [id number] [place] [address] Organization [facility] Care Team Providers Care [facility] Massage Therapist Name Role Phone Andreas Velazquez Unavailable Unavailable Daisy Espino Unavailable Unavailable Dasiy Espino Unavailable Unavailable Guille Walker Unavailable Unavailable Damaso Rowe Unavailable Unavailable Gabriela Anaya Unavailable Unavailable Guille Walker Unavailable Unavailable Daisy Espino Unavailable Unavailable Unavailable Unavailable Unavailable Dr. Daisy Espino Referring Unavailabl e Ambrose, Dr. Daisy Hutchinson Primary Care Unavailabl e , Dr. Guille Villela Attending Unavailable Ambrose, Dr. Daisy Hutchinson Attending Unavailabl e Ambrose, Dr. Daisy Hutchinson Primary Care Unavailabl e Ambrose, Dr. Daisy Hutchinson Attending Unavailabl e Ambrose, Dr. Daisy Hutchinson Primary Care Unavailabl e Ambrose, Dr. Daisy Hutchinson Referring Unavailabl e Ambrose, Dr. Daisy Hutchinson Primary Care Unavailabl e , Dr. Guille Villela Attending Unavailable Ambrose, Dr. Daisy Hutchinson Referring Unavailabl e Ambrose, Dr. Daisy Hutchinson Primary Care Unavailabl e , Dr. Guille Villela Attending Unavailable Daisy Espino Referring Unavailable Ambrose, Daisy Primary Care Unavailable Daisy Espino Attending Unavailable AmbroseDaisy Attending Unavailable AmbroseDaisy Referring Unavailable Ambrose, Daisy Primary Care Unavailable AmbroseDaisy Attending Unavailable Ambrose, Daisy Referring Unavailable Ambrose, Daisy Primary Care Unavailable Ambrose, Daisy Primary Care Unavailable MANNY VELAZQUEZ, WARD CARRANZA Attending Unava ilable YOUNG, MARKETING INTELLIGENCE MANAGER, DNP LESLEY CARRANZA Referring Unava ilable Daisy Espino DO S Primary Care Provider [phone] Daisy Espino DO S Unavailable [phone] SHANEL ESPINOLY S Attending Unavailable ROYALSHANELLY S Referring Unavailable ROYAL, DAISY S Primary Care Unavailable ROYAL, DAISY S Primary Care Unavailable ROYAL, DAISY S Attending Unavailable ROYAL, DAISY S Primary Care Unavailable GUILLE WALKER Attending Unavailable ROYALMORIAHDAISY S Referring Unavailable ROYAL, DAISY S Primary Care Unavailable GUILLE WALKER Attending Unavailable GUILLE WALKER Referring Unavailable MORIAH ESPINOBERLY S Primary Care Unavailable Allergies Allergy Classification Reported Allergen(s) Allergy Type Date of Onset Reaction(s) Facility Aspirin (6 sources) [facility]: Opioid Agonists (6 sources) Codeine Drug [facility] Work Phone: Penicillins (antibiotic) (6 sources) Amoxicillin Drug Allergy [facility] 3 DO Work Phone: (20 sources) Amoxicillin; Translations: [AMOXICILLIN] Drug Allergy 12-24-2022 Unknown [facility] (20 sources) Aspirin; Translations: [Aspirin TABS] Drug Allergy 12-24-2022 Unknown [facility] Work Phone: (20 sources) Codeine; Translations: [CODEINE] Drug Allergy 12-24-2022 Unknown [facility] Work Phone: (2 sources) Aspirin; Translations: [ASPIRIN] Drug Allergy 12-24-2022 [facility] 3 Repository Medications Current Medications Medication Drug Class(es) Dates Sig (Normalized) Sig (Original) aspirin 81 mg oral tablet (20 sources) Platelet Aggregation Inhibitor, Nonsteroidal Anti-inflammatory Drug End: 02-09-2023 take 1 tablet by mouth once daily aspirin 81 mg capsule Take 1 tablet by mouth 1 (one) time each day. 0 02/09/2023 Discontinued (Therapy completed) Completed/Discontinued Medications Medication Drug Class(es) Dates Sig (Normalized) Sig (Original) leflunomide 20 mg oral tablet (20 sources) Antirheumatic Agent take 1 tablet by mouth once daily Leflunomide 20 MG Oral Tablet TAKE 1 TABLET DAILY. Quantity: 0 Refills: 0 Ordered: 23-Jun-2018 DO Active predniSONE 10 mg oral tablet (20 sources) Start: 05-13-2022 End: 08-28-2022 predniSONE 10 MG Oral Tablet Quantity: 30 Refills: 0 Ordered: 13-May-2022 DO Start : 13-May-2022 End : 28-Aug-2022 Complete Problems Active Problems Problem Classification Problem Date Documented Da te Episodic/Chronic Cardiac dysrhythmias (19 sources) Palpitations; Translations: [Palpitations] Episodic Chronic kidney disease (20 sources) Chronic kidney disease stage 3A ; Translations: [Chronic kidney disease, Stage III (moderate)] Onset: 12-24-2022 02-09-2023 Chronic Chronic kidney disease (2 sources) Chronic kidney disease; Translations: [Chronic kidney disease, stage 3a (CMS/HCC)] Onset: 12-24-2022 Disorders of lipid metabolism (18 sources) Hyperlipidemia; Translations: [Other and unspecified hyperlipidemia] Onset: 12-24-2022 02-09-2023 Chronic Essential hypertension (20 sources) Hypertensive disorder; Translations: [Unspecified essential hypertension] Onset: 12-24-2022 12-24-2022 Chronic Genitourinary symptoms and ill-defined conditions (20 sources) H/O: kidney disease; Translations: [Personal history of other specified urinary system disorders] Episodic Hypertension with complications and secondary hypertension (4 sources) Secondary hypertension; Translations: [Secondary hypertension, unspecified] Onset: 12-24-2022 02-09-2023 Chronic Other circulatory disease (20 sources) History of peripheral vascular disease; Translations: [Personal history of other diseases of circulatory system] Episodic Other gastrointestinal disorders (20 sources) Personal history of other diseases of the digestive system; Translations: [History of irritable bowel syndrome] Episodic Other hereditary and degenerative nervous system conditions (20 sources) Essential tremor; Translations: [Essential and other specified forms of tremor] Onset: 12-24-2022 12-24-2022 Chronic Other hereditary and degenerative nervous system conditions (20 sources) Dystonia; Translations: [Abnormal involuntary movements] 10-11-2023 Chronic Other hereditary and degenerative nervous system conditions (3 sources) Dystonia, unspecified; Translations: [Dystonia, unspecified] Onset: 12-17-2022 Chronic Other hereditary and degenerative nervous system conditions (3 sources) Spasmodic torticollis; Translations: [Spasmodic torticollis] Onset: 08-28-2022 Chronic Other hereditary and degenerative nervous system conditions (1 source) Essential tremor; Translations: [Essential tremor] Onset: 08-20-2022 Chronic Other hereditary and degenerative nervous system conditions (1 source) Isolated cervical dystonia; Translations: [Spasmodic torticollis] 08-19-2023 Chronic Other nervous system disorders (20 sources) Median neuropathy; Translations: [Other lesion of median nerve] Onset: 12-24-2022 12-24-2022 Chronic Other nervous system disorders (20 sources) Peripheral nerve disease ; Translations: [Unspecified hereditary and idiopathic peripheral neuropathy] Onset: 12-24-2022 12-24-2022 Chronic Other nervous system disorders (20 sources) Disorder of autonomic nervous system; Translations: [Unspecified disorder of autonomic nervous system] Onset: 12-24-2022 12-24-2022 Chronic Other nervous system disorders (20 sources) Numbness; Translations: [Disturbance of skin sensation] Episodic Other nervous system disorders (20 sources) H/O: migraine; Translations: [Personal history of other disorders of nervous system and sense organs] Episodic Other nervous system disorders (1 source) Tremor, unspecified; Translations: [Tremor, unspecified] Onset: 12-17-2022 Episodic Other nutritional; endocrine; and metabolic disorders (16 sources) Severe obesity; Translations: [Morbid obesity] Onset: 02-09-2023 02-09-2023 Chronic Other nutritional; endocrine; and metabolic disorders (2 sources) Morbid (severe) obesity due to excess calories; Translations: [Morbid (severe) obesity due to excess calories (CMS/HCC)] Onset: 02-09-2023 Chronic Other nutritional; endocrine; and metabolic disorders (2 sources) Body mass index (BMI) 40.0-44.9, adult; Translations: [Body mass index (BMI) 40.0-44.9, adult (CMS/HCC)] Onset: 02-09-2023 Chronic Other nutritional; endocrine; and metabolic disorders (20 sources) H/O: raised blood lipids; Translations: [Personal history of other endocrine, metabolic, and immunity disorders] Episodic Other nutritional; endocrine; and metabolic disorders (20 sources) Personal history of other endocrine, nutritional and metabolic disease; Translations: [History of Aromas disease] Episodic Other nutritional; endocrine; and metabolic disorders (20 sources) History of clinical finding in subject; Translations: [Personal history of other endocrine, metabolic, and immunity disorders] Episodic Residual codes; unclassified (20 sources) Obstructive sleep apnea syndrome; Translations: [Obstructive sleep apnea (adult)(pediatric)] Onset: 12-24-2022 12-24-2022 Chronic Residual codes; unclassified (2 sources) Obstructive sleep apnea (adult) (pediatric); Translations: [Obstructive sleep apnea (adult) (pediatric)] Onset: 12-24-2022 Chronic Residual codes; unclassified (2 sources) Asymptomatic menopausal state; Translations: [Asymptomatic menopausal state] Onset: 02-09-2023 Episodic Rheumatoid arthritis and related disease (5 sources) Inflammatory polyarthropathy; Translations: [Inflammatory polyarthropathy] Onset: 08-10-2023 08-10-2023 Chronic Spondylosis; intervertebral disc disorders; other back problems (20 sources) Cervical spondylosis; Translations: [Cervical spondylosis without myelopathy] Onset: 12-24-2022 12-24-2022 Chronic Past or Other Problems Problem Classification Problem Date Documented Da te Episodic/Chronic Conditions associated with dizziness or vertigo (20 sources) Postural dizziness; Translations: [Dizziness and giddiness] Onset: 12-24-2022 12-24-2022 Episodic Immunizations and screening for infectious disease (20 sources) Patient encounter status; Translations: [Other specified vaccination] Onset: 02-09-2023 02-09-2023 Episodic Nonmalignant breast conditions (18 sources) Lump of upper inner quadrant of breast; Translations: [Lump or mass in breast] Onset: 12-30-2021 Episodic Other circulatory disease (2 sources) Labile blood pressure; Translations: [Labile blood pressure] Episodic Other nutritional; endocrine; and metabolic disorders (20 sources) Body mass index 30+ - obesity; Translations: [Obesity, unspecified] Onset: 12-24-2022 Resolved: 02-09-2023 02-09-2023 Chronic Other screening for suspected conditions (not mental disorders or infectious disease) (20 sources) Mammography abnormal; Translations: [Abnormal mammogram, unspecified] Onset: 07-08-2022 Resolved: 02-09-2023 Episodic Residual codes; unclassified (7 sources) Past history of procedure; Translations: [Other specified personal history presenting hazards to health] Resolved: 07-03-2022 Episodic Residual codes; unclassified (5 sources) Menopause present; Translations: [Asymptomatic menopausal state] Onset: 02-09-2023 02-09-2023 Episodic Unclassified (3 sources) Patient encounter status; Translations: [Medicare annual wellness visit, initial] Unclassified (3 sources) History of clinical finding in subject; Translations: [History of hyperglycemia] Unclassified (3 sources) Onset: 02-09-2023 Resolved: 08-10-2023 02-09-2023 NEGATED: Highlighted row has not occurred!Residual codes; unclassified (20 sources) Disease Episodic Results Test Name Value Interpretation Reference Range Facil ity Vital Signs Date Time Vital Sign Value Performing Clinician Facility 08-19-2023 13:56-0400 Body mass index (BMI) [Ratio] 40.34 kg/m2 Guille Walker MD PhD Work Phone: [facility] 08-19-2023 13:56-0400 Body weight 106.6 kg Guille Walker MD PhD Work Phone: [facility] 08-19-2023 13:56-0400 Diastolic blood pressure 88 mm[Hg] Guille Walker MD PhD Work Phone: [facility] 08-19-2023 13:56-0400 Heart rate 81 /min Guille Walker MD PhD Work Phone: [facility] 08-19-2023 13:56-0400 Respiratory rate 20 /min Guille Walker MD PhD Work Phone: [facility] 08-19-2023 13:56-0400 SaO2% (BldA) [Mass fraction] 97 % Guille Walker MD PhD Work Phone: [facility] 08-19-2023 13:56-0400 Systolic blood pressure 153 mm[Hg] Guille Walker MD PhD Work Phone: [facility] 08-10-2023 13:10-0400 Diastolic blood pressure 76 mm[Hg] Daisy Ambrose DO Work Phone: [facility] 08-10-2023 13:10-0400 Systolic blood pressure 136 mm[Hg] Daisy Ambrose DO Work Phone: [facility] 08-10-2023 12:55-0400 Body height 162.6 cm Daisy Ambrose DO Work Phone: [facility] 08-10-2023 12:55-0400 Body mass index (BMI) [Ratio] 41.02 kg/m2 Daisy Ambrose DO Work Phone: [facility] 08-10-2023 12:55-0400 Body weight 108.41 kg Daisy Ambrose DO Work Phone: [facility] 08-10-2023 12:55-0400 Heart rate 75 /min Daisy Ambrose DO Work Phone: [facility] 08-10-2023 12:55-0400 SaO2% (BldA) [Mass fraction] 96 % Daisy Ambrose DO Work Phone: [facility] 02-09-2023 13:03-0400 Body height 162.6 cm Daisy Ambrose DO Work Phone: [facility] 02-09-2023 13:03-0400 Body mass index (BMI) [Ratio] 40.85 kg/m2 Daisy Ambrose DO Work Phone: [facility] 02-09-2023 13:03-0400 Body weight 107.96 kg Daisy Ambrose DO Work Phone: [facility] 02-09-2023 13:03-0400 Diastolic blood pressure 68 mm[Hg] Daisy Ambrose DO Work Phone: [facility] 02-09-2023 13:03-0400 Heart rate 70 /min Daisy Ambrose DO Work Phone: [facility] 02-09-2023 13:03-0400 SaO2% (BldA) [Mass fraction] 98 % Daisy Ambrose DO Work Phone: [facility] 02-09-2023 13:03-0400 Systolic blood pressure 138 mm[Hg] Daisy Ambrose DO Work Phone: [facility] 01-30-2023 10:07-0400 Body height 162.56 cm Daisy S Ambrose Work Phone: [facility] 3 DO Work Phone: 01-30-2023 10:07-0400 Body mass index (BMI) [Ratio] 41.61 kg/m2 Daisy S Ambrose Work Phone: [facility] 3 DO Work Phone: 01-30-2023 10:07-0400 Body surface area Derived from formula 2.12 m2 Daisy S Ambrose [facility] DO Work Phone: 01-30-2023 10:07-0400 Body weight 109.95 kg Daisy S Ambrose [facility] DO Work Phone: 01-30-2023 10:07-0400 Diastolic blood pressure 70 mm[Hg] Daisy S Ambrose [facility] DO Work Phone: 01-30-2023 10:07-0400 Heart rate 82 /min Daisy S Ambrose [facility] DO Work Phone: 01-30-2023 10:07-0400 Systolic blood pressure 122 mm[Hg] Daisy Hutchinson Ambrose Work Phone[facility] DO Work Phone: 08-28-2022 12:23-0400 Body height 162.56 cm Daisy Hutchinson Ambrose Work Phone: ZU-Svjfcqjtr-Pbqehv d 1024 Work Phone: 08-28-2022 12:23-0400 Body mass index (BMI) [Ratio] 41.63 kg/m2 Daisy Hutchinson Ambrose Work Phone: OC-Rwuqdlgch-Xwfrfs d 1023 Work Phone: 08-28-2022 12:23-0400 Body surface area Derived from formula 2.12 m2 Daisy Hutchinson Ambrose Work Phone: GJ-Gaivmaupb-Bwwfos d 1023 Work Phone: 08-28-2022 12:23-0400 Body weight 110 kg Daisy Hutchinson Ambrose Work Phone: YF-Oazkycyqr-Bgpdsc d 1029 Work Phone: 08-28-2022 12:23-0400 Diastolic blood pressure 77 mm[Hg] Daisy Hutchinson Ambrose Work Phone: KW-Zqquxzgke-Bxeusm d 1022 Work Phone: 08-28-2022 12:23-0400 Heart rate 83 /min Daisy Hutchinson Ambrose Work Phone: VI-Riduxzqdy-Tdmfus d 1025 Work Phone: 08-28-2022 12:23-0400 Respiratory rate 18 /min Daisy Hutchinson Ambrose Work Phone: XN-Ipxntkllm-Ruswer d 1021 Work Phone: 08-28-2022 12:23-0400 SaO2% (BldA) [Mass fraction] 93 % Daisy Hutchinson Ambrose Work Phone: SV-Expvsclkq-Smbsku d 1025 Work Phone: 08-28-2022 12:23-0400 Systolic blood pressure 159 mm[Hg] Daisy Espino Work Phone: UU-Pqlujupoa-Rpghww d 102 Work Phone: 08-20-2022 10:05-0400 Body height 162.56 cm Daisy Espino Work Phone: GX-Dhnuykgnu-Xefzzh d 102 Work Phone: 08-20-2022 10:05-0400 Body mass index (BMI) [Ratio] 40.94 kg/m2 Daisy Espino Work Phone: HH-Jjecxfgbg-Qnxmdg d 1022 Work Phone: 08-20-2022 10:05-0400 Body surface area Derived from formula 2.11 m2 Daisy Espino Work Phone: MO-Dugalwkmo-Dyqqcd d 1022 Work Phone: 08-20-2022 10:05-0400 Body weight 108.18 kg Daisy Espino Work Phone: NL-Zpyobuurp-Wtogcm d 1029 Work Phone: 08-20-2022 10:05-0400 Diastolic blood pressure 80 mm[Hg] Daisy Espino Work Phone: CA-Qxhowpwwt-Pdvpmi d 1024 Work Phone: 08-20-2022 10:05-0400 Heart rate 100 /min Daisy Espino Work Phone: AA-Rgyqvnkfz-Xknspy d 1028 Work Phone: 08-20-2022 10:05-0400 Respiratory rate 16 /min Daisy Espino Work Phone: JP-Tsvryfhij-Ozmgnp d 1029 Work Phone: 08-20-2022 10:05-0400 SaO2% (BldA) [Mass fraction] 96 % Daisy Espino Work Phone: NP-Xnjprdcpe-Jcnngr d 1028 Work Phone: 08-20-2022 10:05-0400 Systolic blood pressure 160 mm[Hg] Daisy Espino Work Phone: CS-Gjqvbtwzt-Cjjael d 1029 Work Phone: 07-24-2022 14:48-0400 Body height 162.56 cm Daisy Espino Work Phone: [facility] Work Phone: 07-24-2022 14:48-0400 Body mass index (BMI) [Ratio] 39.82 kg/m2 Daisy Espino Work Phone: [facility] Work Phone: 07-24-2022 14:48-0400 Body surface area Derived from formula 2.08 m2 Daisy Espino Work Phone: [facility] Work Phone: 07-24-2022 14:48-0400 Body weight 105.24 kg Daisy Espino Work Phone: [facility] Work Phone: 07-24-2022 14:48-0400 Diastolic blood pressure 80 mm[Hg] Daisy Espino Work Phone: [facility] Work Phone: 07-24-2022 14:48-0400 Heart rate 69 /min Daisy Espino Work Phone: [facility] Work Phone: 07-24-2022 14:48-0400 SaO2% (BldA) [Mass fraction] 97 % Daisy sEpino Work Phone: [facility] Work Phone: 07-24-2022 14:48-0400 Systolic blood pressure 128 mm[Hg] Daisy Espino Work Phone: [facility] Work Phone: 07-03-2022 13:49-0400 Body height 162.56 cm Daisy Espino Work Phone: [facility] Work Phone: 07-03-2022 13:49-0400 Body mass index (BMI) [Ratio] 39.48 kg/m2 Daisy Espino Work Phone: [facility] Work Phone: 07-03-2022 13:49-0400 Body surface area Derived from formula 2.08 m2 Daisy Espino Work Phone: [facility] Work Phone: 07-03-2022 13:49-0400 Body weight 104.33 kg Daisy Espino Work Phone: [facility] Work Phone: 07-03-2022 13:49-0400 Diastolic blood pressure 89 mm[Hg] Daisy Espino Work Phone: [facility] Work Phone: 07-03-2022 13:49-0400 Heart rate 72 /min Daisy Espino Work Phone: [facility] Work Phone: 07-03-2022 13:49-0400 Respiratory rate 14 /min Daisy Espino Work Phone: [facility] Work Phone: 07-03-2022 13:49-0400 SaO2% (BldA) [Mass fraction] 97 % Daisy Espino Work Phone: [facility] Work Phone: 07-03-2022 13:49-0400 Systolic blood pressure 164 mm[Hg] Daisy S Ambrose Work Phone: [facility] Work Phone: 01-30-2022 13:42-0400 Body height 162.56 cm Daisy S Ambrose Work Phone: [facility] 3 DO Work Phone: 01-30-2022 13:42-0400 Body mass index (BMI) [Ratio] 39.51 kg/m2 Daisy S Ambrose Work Phone: [facility] 3 DO Work Phone: 01-30-2022 13:42-0400 Body surface area Derived from formula 2.08 m2 Daisy S Ambrose Work Phone: [facility] 3 DO Work Phone: 01-30-2022 13:42-0400 Body weight 104.42 kg Daisy S Ambrose Work Phone: [facility] 3 DO Work Phone: 01-30-2022 13:42-0400 Diastolic blood pressure 82 mm[Hg] Daisy S Ambrose Work Phone: [facility] 3 DO Work Phone: 01-30-2022 13:42-0400 Heart rate 76 /min Daisy S Ambrose Work Phone: [facility] 3 DO Work Phone: 01-30-2022 13:42-0400 Systolic blood pressure 145 mm[Hg] Daisy S Ambrose Work Phone: [facility] 3 DO Work Phone: 12-05-2021 14:16-0500 Body height 162.56 cm Daisy Espino Work Phone: [facility] [employer] [facility] Work Phone: 12-05-2021 14:16-0500 Body mass index (BMI) [Ratio] 38.29 kg/m2 Daisy Espino Work Phone: [facility] [employer] [facility] Work Phone: 12-05-2021 14:16-0500 Body surface area Derived from formula 2.05 m2 Daisy Espino Work Phone: [facility] Work Phone: 12-05-2021 14:16-0500 Body temperature 97.1 [degF] Daisy Espino Work Phone: [facility] Work Phone: 12-05-2021 14:16-0500 Body weight 101.18 kg Daisy Espino Work Phone: [facility] Work Phone: 12-05-2021 14:16-0500 Diastolic blood pressure 80 mm[Hg] Daisy Espino Work Phone: [facility] [employer] [facility] Work Phone: 12-05-2021 14:16-0500 Heart rate 86 /min Daisy Espino Work Phone: [facility] Work Phone: 12-05-2021 14:16-0500 SaO2% (BldA) [Mass fraction] 98 % Daisy Espino Work Phone: [facility] Work Phone: 12-05-2021 14:16-0500 Systolic blood pressure 130 mm[Hg] Daisy Hutchinson Ambrose Work Phone: [facility] Work Phone: 07-02-2021 10:17-0400 Body height 162.56 cm Daisy S Ambrose Work Phone: [facility] 3 DO Work Phone: 07-02-2021 10:17-0400 Body mass index (BMI) [Ratio] 39.31 kg/m2 Daisy S Ambrose Work Phone: [facility] 3 DO Work Phone: 07-02-2021 10:17-0400 Body surface area Derived from formula 2.07 m2 Daisy S Ambrose Work Phone: [facility] 3 DO Work Phone: 07-02-2021 10:17-0400 Body temperature 97.1 [degF] Daisy S Ambrose Work Phone: [facility] 3 DO Work Phone: 07-02-2021 10:17-0400 Body weight 103.87 kg Daisy S Ambrose Work Phone: [facility] 3 DO Work Phone: 07-02-2021 10:17-0400 Diastolic blood pressure 82 mm[Hg] Daisy S Ambrose Work Phone: [facility] 3 DO Work Phone: 07-02-2021 10:17-0400 Heart rate 63 /min Daisy S Ambrose Work Phone: [facility] 3 DO Work Phone: 07-02-2021 10:17-0400 Systolic blood pressure 118 mm[Hg] Daisy S Ambrose Work Phone: [facility] 3 DO Work Phone: 05-16-2021 13:58-0400 Body height 162.56 cm Daisy Espino Work Phone: [facility] Work Phone: 05-16-2021 13:58-0400 Body mass index (BMI) [Ratio] 39.68 kg/m2 Daisy Espino Work Phone: [facility] Work Phone: 05-16-2021 13:58-0400 Body surface area Derived from formula 2.08 m2 Daisy Espino Work Phone: [facility] Work Phone: 05-16-2021 13:58-0400 Body temperature 206.24 [degF] Daisy Espino Work Phone: [facility] Work Phone: 05-16-2021 13:58-0400 Body weight 104.87 kg Daisy Espino Work Phone: [facility] Work Phone: 05-16-2021 13:58-0400 Diastolic blood pressure 72 mm[Hg] Daisy Espino Work Phone: [facility] Work Phone: 05-16-2021 13:58-0400 Heart rate 76 /min Daisy Espino Work Phone: [facility] Work Phone: 05-16-2021 13:58-0400 SaO2% (BldA) [Mass fraction] 97 % Daisy Espino Work Phone: [facility] Work Phone: 05-16-2021 13:58-0400 Systolic blood pressure 118 mm[Hg] Daisy S Ambrose Work Phone: [facility] Work Phone: 04-01-2021 11:03-0400 Body height 162.56 cm Daisy Hutchinson Ambrose Work Phone: [facility] 3 DO Work Phone: 04-01-2021 11:03-0400 Body mass index (BMI) [Ratio] 40.58 kg/m2 Daisy Hutchinson Ambrose Work Phone: [facility] 3 DO Work Phone: 04-01-2021 11:03-0400 Body surface area Derived from formula 2.1 m2 Daisy Hutchinson Ambrose Work Phone: [facility] 3 DO Work Phone: 04-01-2021 11:03-0400 Body temperature 208.04 [degF] Daisy Hutchinson Ambrose Work Phone: [facility] 3 DO Work Phone: 04-01-2021 11:03-0400 Body weight 107.23 kg Daisy Hutchinson Ambrose Work Phone: [facility] Wes 3 DO Work Phone: 04-01-2021 11:03-0400 Diastolic blood pressure 72 mm[Hg] Daisy Hutchinson Ambrose Work Phone: [facility] Wes 3 DO Work Phone: 04-01-2021 11:03-0400 Heart rate 83 /min Daisy Hutchinson Ambrose Work Phone: [facility] Wes 3 DO Work Phone: 04-01-2021 11:03-0400 Systolic blood pressure 117 mm[Hg] Daisy Hutchinson Ambrose Work Phone: [facility] Work Phone: Encounters Encounter Date Encounter Type Care Provider Facility Start: 12-30-2023 End: 12-30-2023 ambulatory [facility] Start: 08-19-2023 End: 08-20-2023 ambulatory [facility] Start: 08-19-2023 End: 08-19-2023 Office outpatient visit 25 minutes Guille Walker MD PhD Work Phone: [facility] Office Building Procedures Date Procedure Procedure Detail Performing Clinician Start: 12-30-2023 FOLLOW UP IN NEUROLOGY GUILLE WALKER Start: 08-19-2023 NECK BOTULINUM INJECTION GUILLE WALKER Start: 08-10-2023 FOLLOW UP IN FAMILY MEDICINE DAISY ESPINO Start: 07-09-2023 Mammography Daisy R oyal DO Work Phone: Start: 07-08-2022 Mammography Daisy R oyal DO Work Phone: Start: 06-30-2022 Lipid 1996 panel - S duarte or Plasma Daisy Espino DO Work Phone: Cataract surgery Andreas Velazquez History of Ear Surgery [facility] Hysterectomy [facility] Stapedectomy Guille Walker Plan of Treatment Date Care Activity Detail Author Start: 06-30-2027 Lipid panel Lipid Panel [facility] Start: 07-09-2024 Screening for malignant neoplasm of breast Mammogram [facility] Start: 02-11-2024 Medicare Annual Wellness Visit Medicare Annual Wellness Visit (AWV) [facility] Start: 02-08-2024 End: 02-08-2024 Patient encounter procedure 02/08/2024 1:00 PM EDT Office Visit [facility] [address] [place] [id number] Daisy Espino DO [address] [facility] [place] [address] [facility] Start: 12-23-2023 End: 12-23-2023 Patient encounter procedure 12/23/2023 1:30 PM EST Procedure Visit [facility] Office [address] [place] [id number] Guille Walker MD PhD [address] [place] [address] [facility] Office [facility] Start: 08-19-2023 End: 08-19-2023 Patient encounter procedure 08/19/2023 2:30 PM EDT Procedure Visit [facility] Office [address] [place] [id number] Guille Walker MD PhD [address] [place] [address] [facility] Start: 08-11-2023 End: 02-10-2024 DXA Skeletal system Views for bone density XR DEXA bone density Imaging Routine Menopause Expected: 08/11/2023, Expires: 02/10/2024 [facility] Work Phone: Immunizations Immunization Date Immunization Notes Care Provider Fa [facility] 08-19-2023 botulinum antitoxin; Translations: [NECK BOTULINUM INJECTION] Guille Walker MD PhD Work Phone: [facility] Work Phone: 08-10-2023 Flu vaccine, quadrivalent, high-dose, preservative free, age 65y+ (FLUZONE) Daisy Ambrose DO Work Phone: [facility] 08-20-2022 Fluad Quadrivalent 0 .5 ML Intramuscular Prefilled Syringe Daisy S Ambrose Work Phone: [place] [address] Work Phone: 08-20-2022 influenza, seasonal, injectable Daisy Ambrose DO Work Phone: [facility] Work Phone: 08-20-2022 Pfizer COVID-19 Vac Bivalent 30 MCG/0.3ML Intramuscular Suspension Daisy Hutchinson Ambrose Work Phone: [id number] Work Phone: 08-20-2022 Pfizer Purple Cap SARS-CoV-2 Daisy Ambrose DO Work Phone: [facility] Work Phone: 10-25-2021 Fluad Quadrivalent 0 .5 ML Intramuscular Prefilled Syringe Daisy Hutchinosn Ambrose Work Phone: [facility] Work Phone: 10-25-2021 influenza, seasonal, injectable Daisy Ambrose DO Work Phone: [facility] Work Phone: 10-10-2021 influenza, seasonal, injectable Daisy Hutchinson Ambrose Work Phone: [facility] Work Phone: Payers Date Payer Category Payer Medicare MEDICARE MEDICAR E PART A AND B [id number] 2019-Present [address] [place] [address] [id number] 2019 Unknown 2019 Unknown [id number] 2019 Medicare [id number] 1954 Unknown [id number] 1954 Unknown [id number] [id number] 1954 Unknown [id number] [id number] 1954 Unknown [id number] [id number] 1954 Unknown [id number] [id number] 1954 Unknown [id number] [id number] 1954 Unknown [id number] [id number] 1954 Unknown [id number] [id number] 1954 Unknown [id number] [id number] 1954 Unknown [id number] 2.16.840.1.855532.3.579.2.1244 1954 Unknown [id number] 2.16.840.1.171442.3.579.2.1244 1954 Unknown [id number] 2.16.840.1.564362.3.579.2.1244 1954 Unknown [id number] [id number] 1954 Unknown [id number] [id number] Social History Date Type Detail Facility Start: 08-10-2023 End: 10-01-2020 Never smoker Never smoker [id number] hland Swan Wes 3 DO Work Phone: Functional Status Date Assessment Result Facility NEGATED: Highlighted row Functional performance Functional status health issues are not documented Disease [id number] Work Phone: Mental Status Date Assessment Result Facility NEGATED: Highlighted row Cognitive function [Interpretation] Cognitive status health issues are not documented Disease [facility] Work Phone: Clinical Notes 02-09-2023 to 08-19-2023 Guille Walker MD PhD - 08/19/2023 2:30 PM EDT Note Date & Type Note Facility 08-19-2023 History of Present illness Narrative Associated Order(s): Neck Botulinum Injection Post-Procedure Diagnose(s): Cervical dystonia Neurology Botulinum Injection Subjective Kiersten Butt is an 67 y.o. female here for medical botulinum injection for Dystonia [G24.9]. She comes in for follow-up injection for botulinum toxin. She received Xeomin previously which was 300 units. She did quite well on that lasted long enough. Therefore she wants repeat the same dose. Objective Alert oriented x4 extraocular full, saccade normal clear normal pursuit normal. Facial nerve is symmetric. There is no no head tremor and there is no obvious dystonia. Motor exam unremarkable otherwise. Reflexes symmetric. Sensations intact. Gait is unremarkable. Neck Botulinum Injection Date/Time: 08/19/2023 2:44 PM Performed by: Guille Walker MD PhD Authorized by: Guille Walker MD PhD Consent: Consent obtained: Written Consent given by: Patient Risks discussed: Weakness, dysphagia and pain Alternatives discussed: Alternative treatment Procedure details: EMG used?: Yes Electrical stimulation used?: No Toxin (Brand): IncoBoNT-A (Xeomin) Total number of units available: 300 Right splenius capitis: 100 units divided amongst 1 site(s) Left splenius capitis: 100 units divided amongst 1 site(s) Right sternocleidomastoid: 50 units divided amongst 1 site(s) Left sternocleidomastoid: 50 units divided amongst 1 site(s) Total units injected: 300 Total units wasted: 0 Post-procedure details: Patient tolerance of procedure: Tolerated well, no immediate complications Assessment/Plan The patient is a 67-year-old woman with a history of cervical dystonia neck, coming here for botulinum toxin injection received 300 units of Xeomin and she did last time which worked for her. She tolerated this well. Follow-up in 3 months. documented in this encounter [facility] Work Phone: documented in this encounter [facility] Work Phone: 1(495) 356-464610-03-2023 Reason for visit Narrative* Consultation (Routine) - Closed Specialty Diagnoses / Procedures Referred By Cullen andrews Referred To Contact Primary Care Diagnoses Mixed hyperlipidemia Stage 3a chronic kidney disease ([facility]/HCC) Secondary hypertension Class 3 severe obesity due to excess calories without serious comorbidity with body mass index (BMI) of 40.0 to 44.9 in adult (CMS/HCC) Procedures Follow Up In Primary Care Daisy Espino DO [address] [facility] [place] [address] Referral ID Status Reason Start Date Expiration Date Visits Re quested Visits Authorized [id number] Closed 02/09/2023 08/08/2023 1 1 [facility] Work Phone: 1(566) 633-805510-02-2023 Evaluation + Plan note* Assessment & Plan Note - Daisy Espino DO - 08/10/2023 1:19 PM EDTAssociated Problem(s): JONNY on CPAP -She uses her CPAP device faithfully and has derived benefit from its use [facility] Work Phone: 1([phone] 313-907710-02-2023 Evaluation + Plan note* Assessment & Plan Note - Daisy Espino DO - 08/10/2023 1:19 PM EDTAssociated Problem(s): Menopause -Her DEXA scan was reviewed today and came back entirely normal [facility] Work Phone: 1([phone] 654-973510-02-2023 Miscellaneous Notes* Assessment & Plan Note - Daisy Espino DO - 08/10/2023 1:19 PM EDTAssociated Problem(s): JONNY on CPAP -She uses her CPAP device faithfully and has derived benefit from its use * Assessment & Plan Note - Daisy Espino DO - 08/10/2023 1:19 PM EDT Associated Problem(s): Menopause -Her DEXA scan was reviewed today and came back entirely normal * Assessment & Plan Note - Daisy Espino DO - 08/10/2023 1:18 PM EDT Associated Problem(s): Stage 3a chronic kidney disease (CMS/HCC) -Stable and she routinely gets her lab work done through her oncology specialist * Assessment & Plan Note - Daisy Espino DO - 08/10/2023 1:17 PM EDT Associated Problem(s): Hypertension -Her blood pressure is currently adequately controlled -I have asked that she check at home with her personal monitor routinely and call us if her numbersgo up. I have also asked that she bring her monitor with her to her next appointment. -She will continue with nifedipine CC 90 mg daily -Metoprolol succinate XL 100 mg daily -Losartan 100 mg daily -Spironolactone 50 mg daily * Assessment & Plan Note - Daisy Espino DO - 08/10/2023 1:16 PM EDT Associated Problem(s): Hyperlipidemia -She will go soon for a fasting lipid profile and I have agreed to contact her with results -She will stay on atorvastatin 20 mg daily * Assessment & Plan Note - Daisy Espino DO - 08/10/2023 1:13 PM EDT Associated Problem(s): Inflammatory polyarthropathy (CMS/HCC) -She has been diagnosed with inflammatory polyarthropathy as well as fibromyalgia and sicca syndrome and follows closely with * Addendum Note - Aurelio Crowlel MA - 08/10/2023 1:00 PM EDTAddended by: AURELIO CROWELL on: 08/10/2023 02:30 PM Modules accepted: Orders documented in this [facility] Work Phone: [phone] 166-624810-02-2023 Evaluation + Plan note* Assessment & Plan Note - Daisy Espino DO - 08/10/2023 1:18 PM EDTAssociated Problem(s): Stage 3a chronic kidney disease (CMS/HCC) -Stable and she routinely gets her lab work done through her oncology specialist [facility] Work Phone: [phone] 543-461210-02-2023 Evaluation + Plan note* Assessment & Plan Note - Daisy Espino DO - 08/10/2023 1:17 PM EDTAssociated Problem(s): Hypertension -Her blood pressure is currently adequately controlled -I have asked that she check at home with her personal monitor routinely and call us if her numbersgo up. I have also asked that she bring her monitor with her to her next appointment. -She will continue with nifedipine CC 90 mg daily -Metoprolol succinate XL 100 mg daily -Losartan 100 mg daily -Spironolactone 50 mg daily [facility] Work Phone: 1([phone]) [phone] Evaluation + Plan note* Assessment & Plan Note - Daisy Espino DO - 08/10/2023 1:16 PM EDTAssociated Problem(s): Hyperlipidemia -She will go soon for a fasting lipid profile and I have agreed to contact her with results -She will stay on atorvastatin 20 mg daily [facility] Work Phone: [phone] 219-370110-02-2023 Evaluation + Plan note* Assessment & Plan Note - Daisy Espino DO - 08/10/2023 1:13 PM EDTAssociated Problem(s): Inflammatory polyarthropathy (CMS/HCC) -She has been diagnosed with inflammatory polyarthropathy as well as fibromyalgia and sicca syndrome and follows closely with [facility] Work Phone: [phone] 266-349110-02-2023 History of Present illness Narrative* Aurelio Crowell MA - 08/10/2023 1:00 PM EDT Pt is here today for a 6 month check up, C/O weight gain. * Daisy Espino DO - 08/10/2023 1:00 PM EDT Subjective Patient ID: Kiersten Butt is a 67 y.o. female who presents for No chief complaint on file.. HPI She is here today for what represents her 6-month checkup. We are reminded that she suffers from inflammatory polyarthropathy as well as fibromyalgia. She states she has good days and bad days but recently feels like she is in a flare. She has been prescribed a prednisone prescription for bad days and she is a course on methotrexate. We talked about the possibility of something like gabapentin but we decided that she could discuss it with her oncology specialist and go from there. When she arrived her blood pressure was a bit generous but after sitting for a while it did come down a few points. She states she checks her blood pressure at home and she typically gets systolic readings in the 1 27-1 30 range and she states her diastolics are usually around the low 80 range. I have asked that she continue to monitor and even bring her blood pressure monitor with her to her next follow-up visit. She also recently completed her mammogram. We went over her bone density which came back fantastic. She had no thinning anywhere. We also talked about colon cancer screening and she would prefer doing the fecal occult blood test kit so we will give her a kit today for her to complete at her earliestconvenience. She is agreeable to getting the season's flu vaccine and she is also agreeable to going for a fasting lipid profile soon and we will contact her with results. She states she did have labwork recently but for some reason I could not find it in the computer. Review of Systems Constitutional: C/o chronic fatigue Respiratory: Negative for cough, shortness of breath and wheezing. Cardiovascular: Negative for chest pain and palpitations. Has chronic leg edema that is controlled with wearing compression stockings and keeping legs elevated Gastrointestinal: Negative for abdominal pain, blood in stool, diarrhea, nausea and vomiting. Objective Physical Exam Vitals and nursing note reviewed. Constitutional: General: She is not in acute distress. Appearance: Normal appearance. HENT: Head: Normocephalic and atraumatic. Eyes: Conjunctiva/sclera: Conjunctivae normal. Cardiovascular: Rate and Rhythm: Normal rate and regular rhythm. Heart sounds: Normal heart sounds. Pulmonary: Effort: No respiratory distress. Breath sounds: No wheezing. Abdominal: Palpations: Abdomen is soft. Tenderness: There is no abdominal tenderness. There is no guarding. Musculoskeletal: General: No swelling. Normal range of motion. Skin: General: Skin is warm and dry. Neurological: General: No focal deficit present. Mental Status: She is alert and oriented to person, place, and time. Psychiatric: Behavior: Behavior normal. Assessment/Plan Problem List Items Addressed This Visit ICD-10-CM Hyperlipidemia E78.5 -She will go soon for a fasting lipid profile and I have agreed to contact her with results -She will stay on atorvastatin 20 mg daily Relevant Orders Lipid panel Hypertension I10 -Her blood pressure is currently adequately controlled -I have asked that she check at home with her personal monitor routinely and call us if her numbersgo up. I have also asked that she bring her monitor with her to her next appointment. -She will continue with nifedipine CC 90 mg daily -Metoprolol succinate XL 100 mg daily -Losartan 100 mg daily -Spironolactone 50 mg daily Relevant Medications spironolactone (Aldactone) 50 mg tablet JONNY on CPAP - Primary G47.33 -She uses her CPAP device faithfully and has derived benefit from its use Stage 3a chronic kidney disease ([facility]) N18.31 -Stable and she routinely gets her lab work done through her oncology specialist Class 3 severe obesity due to excess calories without serious comorbidity with body mass index (BMI) of 40.0 to 44.9 in adult ([facility]/HCC) E66.01, Z68.41 Menopause Z78.0 -Her DEXA scan was reviewed today and came back entirely normal Inflammatory polyarthropathy ([facility]) M06.4 -She has been diagnosed with inflammatory polyarthropathy as well as fibromyalgia and sicca syndrome and follows closely with Dr.Vellanki Daisy Espino DO [facility] Work Phone: [phone] Instructions* Patient Instructions* Daisy Espino DO - 08/10/2023 1:00 PM EDT We will be giving you this years flu vaccine today We are giving you a fecal occult blood test kit and please try to complete that at your earliest convenience and drop it off here Please remember to check your blood pressure at home when you have the opportunity to sit and relaxand please bring your monitor with you to your next visit You can talk to Dr. Anaya about treatment for your fibromyalgia and you could mention to her that we briefly mentioned gabapentin Please remember to go at your earliest convenience for a fasting lipid profile and we will contact you with results We also encourage you to sign up for [employer] which is the patient portal through the [employer]. It is an excellent portal as you will be able to see all of your laboratory test results, my progress notes, and we can even message each other through this application [facility] Work Phone: 1([phone]) [phone] Note* Addendum Note - Aurelio Crowell MA - 08/10/2023 1:00 PM EDTAddended by: AURELIO CROWELL on: 08/10/2023 02:30 PM Modules accepted: Orders [facility] Work Phone: [phone] Evaluation + Plan note* Assessment & Plan Note - Daisy Espino DO - 02/09/2023 1:37 PM EDTAssociated Problem(s): Menopause -We are ordering her DEXA scan to be done just prior to her next follow-up visit in 6 months [facility] Work Phone: [phone] Miscellaneous Notes* Assessment & Plan Note - Daisy Espino DO - 02/09/2023 1:37 PM EDTAssociated Problem(s): Menopause -We are ordering her DEXA scan to be done just prior to her next follow-up visit in 6 months * Assessment & Plan Note - Daisy Espino DO - 02/09/2023 1:33 PM EDT Associated Problem(s): Stage 3a chronic kidney disease -Kidney function has improved significantly and we will continue to monitor her BMP twice a year -She is no longer seeing the kidney specialist i.e. Dr. Velazquez * Assessment & Plan Note - Daisy Espino DO - 02/09/2023 1:32 PM EDT Associated Problem(s): JONNY on CPAP She continues to use her CPAP device faithfully and has derived benefit from its use * Assessment & Plan Note - Daisy Espino DO - 02/09/2023 1:32 PM EDT Associated Problem(s): Hypertension -Her blood pressure is currently adequately controlled -She will remain on losartan 100 mg daily -Metoprolol succinate XL 100 mg daily -Nifedipine CC 90 mg 1 tablet daily -Spironolactone 50 mg 1 tablet once daily [facility] Work Phone: [phone] Evaluation + Plan note* Assessment & Plan Note - Daisy Espino DO - 02/09/2023 1:33 PM EDTAssociated Problem(s): Stage 3a chronic kidney disease -Kidney function has improved significantly and we will continue to monitor her BMP twice a year -She is no longer seeing the kidney specialist i.e. Dr. Velazquez [facility] Work Phone: [phone] Evaluation + Plan note* Assessment & Plan Note - Daisy Espino DO - 02/09/2023 1:32 PM EDTAssociated Problem(s): JONNY on CPAP She continues to use her CPAP device faithfully and has derived benefit from its use [facility] Work Phone: [phone] Evaluation + Plan note* Assessment & Plan Note - Daisy Espino DO - 02/09/2023 1:32 PM EDTAssociated Problem(s): Hypertension -Her blood pressure is currently adequately controlled -She will remain on losartan 100 mg daily -Metoprolol succinate XL 100 mg daily -Nifedipine CC 90 mg 1 tablet daily -Spironolactone 50 mg 1 tablet once daily [facility] Work Phone: 1([phone] History of Present illness Narrative* Aurelio Crowell MA - 02/09/2023 1:00 PM EDT Pt is here today for a 6 month check up, she is also due for a [facility] wellness exam. Has medication questions. * Daisy Espino DO - 02/09/2023 1:00 PM EDT Subjective Reason for Visit: Kiersten Butt is an 67 y.o. female here for a Medicare Wellness visit. Past Medical, Surgical, and Family History reviewed and updated in chart. Reviewed all medications by prescribing practitioner or clinical pharmacist (such as prescriptions,OTCs, herbal therapies and supplements) and documented in the medical record. HPI She is here today for her general checkup and we also completed her annual Medicare wellness visit.She is looking well and for the most part doing relatively well. She still complains of chronic fatigue. We did conduct a full review of systems we also went through the Medicare questionnaire. Currently her blood pressure remains under good control. Her lab work is reflecting improvement in her kidney function and she no longer sees Dr. Velazquez for checkups. We can provide all of her chronic medication refills here. She also goes to rheumatology for evaluation and also neurology for her dystonia /essential tremor. We discussed colorectal cancer screening and her last FOBT was back in June 2022. We also discussed getting her screening mammogram scheduled as well for the upcoming year. I will summarize all of her medical problems below. Patient Care Team: Daisy Espino DO as PCP - General Daisy Esp[facility] Attributed Provider Review of Systems Constitutional: Positive for fatigue. Negative for unexpected weight change. C/O chronic fatigue Respiratory: Negative for cough, chest tightness, shortness of breath and wheezing. Cardiovascular: Negative for chest pain, palpitations and leg swelling. Gastrointestinal: Negative for abdominal pain, blood in stool, diarrhea, nausea and vomiting. Musculoskeletal: Positive for arthralgias. Negative for back pain. Objective Vitals: BP 138/68 Pulse 70 Ht 1.626 m (5' 4 ) Wt 108 kg (238 lb) SpO2 98% BMI 40.85 kg/m Physical Exam Vitals and nursing note reviewed. Constitutional: General: She is not in acute distress. Appearance: Normal appearance. HENT: Head: Normocephalic and atraumatic. Eyes: Conjunctiva/sclera: Conjunctivae normal. Cardiovascular: Rate and Rhythm: Normal rate and regular rhythm. Heart sounds: Normal heart sounds. Pulmonary: Effort: No respiratory distress. Breath sounds: No wheezing. Abdominal: Palpations: Abdomen is soft. Tenderness: There is no abdominal tenderness. There is no guarding. Musculoskeletal: General: No swelling. Normal range of motion. Skin: General: Skin is warm and dry. Neurological: General: No focal deficit present. Mental Status: She is alert and oriented to person, place, and time. Psychiatric: Behavior: Behavior normal. Recent Results (from the past 1008 hour(s)) Basic Metabolic Panel Collection Time: 01/28/23 10:45 AM Result Value Ref Range Glucose 95 74 - 99 mg/dL Sodium 139 136 - 145 mmol/L Potassium 4.9 3.5 - 5.3 mmol/L Chloride 103 98 - 107 mmol/L Bicarbonate 29 21 - 32 mmol/L Anion Gap 12 10 - 20 mmol/L Urea Nitrogen 13 6 - 23 mg/dL Creatinine 0.92 0.50 - 1.05 mg/dL GFR Female 68 >90 mL/min/1.73m2 Calcium 9.9 8.6 - 10.3 mg/dL Assessment/Plan Problem List Items Addressed This Visit Circulatory Hypertension Current Assessment & Plan -Her blood pressure is currently adequately controlled -She will remain on losartan 100 mg daily -Metoprolol succinate XL 100 mg daily -Nifedipine CC 90 mg 1 tablet daily -Spironolactone 50 mg 1 tablet once daily Relevant Orders Follow Up In Primary Care Genitourinary Stage 3a chronic kidney disease Current Assessment & Plan -Kidney function has improved significantly and we will continue to monitor her BMP twice a year -She is no longer seeing the kidney specialist i.kevin Velazquez Relevant Orders Follow Up In Primary Care Endocrine/Metabolic Class 3 severe obesity due to excess calories without serious comorbidity with body mass index (BMI) of 40.0 to 44.9 in adult (CMS/HCC) Relevant Orders Follow Up In Primary Care Other Hyperlipidemia Relevant Orders Follow Up In Primary Care Lipid panel Encounter for screening mammogram for malignant neoplasm of breast - Primary Relevant Orders BI mammo bilateral screening tomosynthesis Menopause Current Assessment & Plan -We are ordering her DEXA scan to be done just prior to her next follow-up visit in 6 months Relevant Orders XR DEXA bone density Problem List Items Addressed This Visit Circulatory Hypertension -Her blood pressure is currently adequately controlled -She will remain on losartan 100 mg daily -Metoprolol succinate XL 100 mg daily -Nifedipine CC 90 mg 1 tablet daily -Spironolactone 50 mg 1 tablet once daily Relevant Orders Follow Up In Primary Care Genitourinary Stage 3a chronic kidney disease -Kidney function has improved significantly and we will continue to monitor her BMP twice a year -She is no longer seeing the kidney specialist i.e. Dr. Velazquez Relevant Orders Follow Up In Primary Care Endocrine/Metabolic Class 3 severe obesity due to excess calories without serious comorbidity with body mass index (BMI) of 40.0 to 44.9 in adult (CMS/[facility]) Relevant Orders Follow Up In Primary Care Other Hyperlipidemia Relevant Orders Follow Up In Primary Care Lipid panel Encounter for screening mammogram for malignant neoplasm of breast - Primary Relevant Orders BI mammo bilateral screening tomosynthesis Menopause -We are ordering her DEXA scan to be done just prior to her next follow-up visit in 6 months Relevant Orders XR DEXA bone density [facility] Work Phone: [phone] 321-983904-03-2023 Instructions* Patient Instructions* Daisy Espino DO - 02/09/2023 1:00 PM EDT -I am very pleased with how you are doing at this time and do the best you can as far as exercise is concerned. -I have only ordered a lipid panel to be done prior to your next visit as well as a DEXA scan to checki for osteoporosis. You will do both of these test close to your next follow-up appointment in 6 months. We we will also schedule your mammogram to be done when it is due next time. -We will see you in approximately 6 months and please remember to get your fasting lab work prior to that visit [facility] Work Phone: Evaluation note* Diagnosis Medicare annual wellness visit, subsequent- Primary Menopause Symptomatic menopausal or female climacteric states Mixed hyperlipidemia Stage 3a chronic kidney disease Secondary hypertension Other secondary hypertension, unspecified Class 3 severe obesity due to excess calories without serious comorbidity with body mass index (BMI) of 40.0 to 44.9 in adult ([facility]) Encounter for screening mammogram for malignant neoplasm of breast documented in this encounter [facility] Work Phone: Evaluation note* Diagnosis Dystonia- Primary Abnormal involuntary movements Cervical dystonia Spasmodic torticollis documented in this encounter [facility] Work Phone: History of Present illness Narrative* Patient being seen in follow-up for chronic kidney disease stage IIIa * Labs reviewed * Electrolytes within normal limits with potassium of 3.8 and bicarb of 23 * Renal function is good with a BUN of 14 and creatinine of 1.03, GFR is 53 * She is doing fairly well * She does check her blood pressure occasionally at home and states that it is usually about the sameas what it is running here today but did not give me any specific numbers * She has no complaints of swelling * She has no difficulties voiding * She continues to follow with her oncology specialist due to her chronic pain and feels that her CBD ointment is her best treatment at this time and that her blood pressure is better controlled when she isusing it. [facility] 3 DO Work Phone: History of Present illness Narrative* The patient is being seen for the subsequent annual wellness visit. * Medications and Supplements: Review of all medications by a prescribing practitioner or clinical pharmacist (such as prescriptions, OTCs, herbal therapies and supplements) documented in the medical record. * No, the patient is not using opioids. * Patient Self Assessment of Health Status: poor. * Tobacco use: Non-User * Alcohol use: Non-User * Illicit drug use: Non-User * Current diet: well balanced diet, does consume adequate fluids and does consume caffeine. * Exercise Frequency: infrequently. * Depression/Suicide Screening: . * During the past 2 weeks, the patient has not felt down, depressed or hopeless. * During the past 2 weeks, the patient has not felt little interest or pleasure in doing things. * Hearing Impairment: Patient has significant hearing impairment, on the left. * Cognitive Impairment: No cognitive impairment observed. * Bathing: performs independently. * Dressing: performs independently. * Walking: performs independently. * Bowels: continent. * Bladder: continent. * Managing Finances: performs independently. * Shopping: performs independently. * Managing Medications: performs independently. * Housework / Basic Home Maintenance: performs independently. * Handling Transportation: performs independently. * Falls Risk Screening:. ESCALANTE has not fallen in the last 6 months. * Home safety risk factors: none. * Advance directives:. Advanced Care Planning discussed and documented advance care plan or surrogatedecision maker documented in the medical record. Patient has living will. Patient has healthcare POA. -[facility] Work Phone: History of Present illness Narrative* Patient being seen in follow-up for hypertension and stage III kidney disease * Labs reviewed * BMP with electrolytes within normal limits, sodium 135, potassium 4.4, chloride 102, bicarb 25 * Renal function with BUN of 17 and creatinine of 0.94 * Total protein creatinine ratio with total protein less than 4 * She is doing well * She has no increase in her swelling * Her blood pressure is little elevated today and she feels this could be secondary to pain from her fibromyalgia and arthritis * She is voiding without difficulties * She is not routinely checking her blood pressure at home but has the ability to do this [facility] 3 DO Work Phone: History of Present illness Narrative* Overall doing well. Still on primidone. * here for injections. * ROS:Negative except as noted above * exam: * dystonic neck tremor. [facility] 8889 Work Phone: History of Present illness Narrative* Overall doing well. Still on primidone. * here for injections. * ROS:Negative except as noted above * exam: * dystonic neck tremor. [facility] 0157 Work Phone: History of Present illness Narrative* Patient being seen in follow-up for chronic kidney disease and resistant hypertension * Labs reviewed * BMP with a glucose of 95 * Electrolytes within normal limits with a sodium of 139, potassium 4.9, bicarb 29 * Renal function with BUN of 13 and creatinine of 0.92 * Renal function is staying within its normal limits * In September she did have an elevation in her creatinine to 1.11 and an increase in her potassium to5.2, at that time her spironolactone was decreased 50 mg twice a day to 50 mg daily * Her blood pressure has stayed stable * She does not routinely check it at home * She has had improvement in some of her lower extremity swelling secondary to changes of her medications from her oncology specialist [facility] 3 DO Work Phone: reason for referral (narrative)* Consultation (Routine) - Authorized Specialty Diagnoses / Procedures Referred By Cullen andrews Referred To Contact Primary Care Procedures Follow Up In Primary Care Daisy Espino DO [address] [facility] [place] [address] Referral ID Status Reason Start Date Expiration Date V isits Requested Visits Authorized [id number] Authorized 08/10/2023 02/06/2024 1 1 [facility] Work Phone: Reason for referral (narrative)* Consultation (Routine) - Pending Review Specialty Diagnoses / Procedures Referred By Cullen andrews Referred To Contact Neurology Diagnoses Dystonia Procedures Follow Up In Neurology Follow Up In Neurology Guille Walker MD PhD [address] [facility] [place] [phone] Referral ID Status Reason Start Date Expiration Date V isits Requested Visits Authorized [id number] Pending Review 08/19/2023 02/15/2024 1 1 * Procedure (Routine) - Pending Review Specialty Diagnoses / Procedures Referred By Cullen andrews Referred To Contact Diagnoses Cervical dystonia Procedures Neck Botulinum Injection Guille Walker MD PhD [address] [facility] [place] [address] Referral ID Status Reason Start Date Expiration Date Visits Requested Visits Authorized [id number] Pending Review Perform Procedure 3 02/15/2024 1 1 * Clinic-Administered Medication (Routine) - Pending Review Specialty Diagnoses / Procedures Referred By Cullen andrews Referred To Contact Diagnoses Guille Perez MD PhD [address] [facility] [address] [place] [address] Referral ID Status Reason Start Date Expiration Date V isits Requested Visits Authorized [id number] Pending Review 08/19/2023 02/15/2024 1 1 [facility] Work Phone: Summary Purpose Family History No Family History Records FoundUnknown Family Member Name Dates Details Family history of hypertensi on(V17.49, Z82.49) Comments:Other Status:Active Family history of thyroid di sease(V18.19, Z83.49) Comments:Other Status:Active Mother Name Dates Details Family history of cerebrovas cular accident (CVA)(V17.1, Z82.3) Status:Active Family history of dementia(V 17.2, Z81.8) Status:Active Family history of cardiac di sorder(V17.49, Z82.49) Status:Active Unknown Family Member Name Dates Details Family history of hypertensi on(V17.49, Z82.49) Comments:Other Status:Active Family history of thyroid di sease(V18.19, Z83.49) Comments:Other Status:Active Mother Name Dates Details Family history of cerebrovas cular accident (CVA)(V17.1, Z82.3) Status:Active Family history of dementia(V 17.2, Z81.8) Status:Active Family history of cardiac di sorder(V17.49, Z82.49) Status:Active Unknown Family Member Name Dates Details Family history of hypertensi on(V17.49, Z82.49) Comments:Other Status:Active Family history of thyroid di sease(V18.19, Z83.49) Comments:Other Status:Active Mother Name Dates Details Family history of cerebrovas cular accident (CVA)(V17.1, Z82.3) Status:Active Family history of dementia(V 17.2, Z81.8) Status:Active Family history of cardiac di sorder(V17.49, Z82.49) Status:Active Unknown Family Member Name Dates Details Family history of cerebrovas cular accident (CVA): Mother(V17.1, Z82.3) Status:Active Family history of dementia: Mother(V17.2, Z81.8) Status:Active Family history of cardiac di sorder: Mother(V17.49, Z82.49) Status:Active Family history of hypertensi on: Other(V17.49, Z82.49) Status:Active Family history of thyroid di sease: Other(V18.19, Z83.49) Status:Active Unknown Family Member Name Dates Details Family history of cerebrovas cular accident (CVA): Mother(V17.1, Z82.3) Status:Active Family history of dementia: Mother(V17.2, Z81.8) Status:Active Family history of cardiac di sorder: Mother(V17.49, Z82.49) Status:Active Family history of hypertensi on: Other(V17.49, Z82.49) Status:Active Family history of thyroid di sease: Other(V18.19, Z83.49) Status:Active Unknown Family Member Name Dates Details Family history of cerebrovas cular accident (CVA): Mother(V17.1, Z82.3) Status:Active Family history of dementia: Mother(V17.2, Z81.8) Status:Active Family history of cardiac di sorder: Mother(V17.49, Z82.49) Status:Active Family history of hypertensi on: Other(V17.49, Z82.49) Status:Active Family history of thyroid di sease: Other(V18.19, Z83.49) Status:Active Unknown Family Member Name Dates Details Family history of cerebrovas cular accident (CVA): Mother(V17.1, Z82.3) Status:Active Family history of dementia: Mother(V17.2, Z81.8) Status:Active Family history of thyroid di sease: Other(V18.19, Z83.49) Status:Active Family history of hypertensi on: Other(V17.49, Z82.49) Status:Active Family history of cardiac di sorder: Mother(V17.49, Z82.49) Status:Active Unknown Family Member Name Dates Details Family history of cerebrovas cular accident (CVA): Mother(V17.1, Z82.3) Status:Active Family history of dementia: Mother(V17.2, Z81.8) Status:Active Family history of cardiac di sorder: Mother(V17.49, Z82.49) Status:Active Family history of hypertensi on: Other(V17.49, Z82.49) Status:Active Family history of thyroid di sease: Other(V18.19, Z83.49) Status:Active Unknown Family Member Name Dates Details Family history of cerebrovas cular accident (CVA): Mother(V17.1, Z82.3) Status:Active Family history of dementia: Mother(V17.2, Z81.8) Status:Active Family history of cardiac di sorder: Mother(V17.49, Z82.49) Status:Active Family history of hypertensi on: Other(V17.49, Z82.49) Status:Active Family history of thyroid di sease: Other(V18.19, Z83.49) Status:Active Unknown Family Member Name Dates Details Family history of cerebrovas cular accident (CVA): Mother(V17.1, Z82.3) Status:Active Family history of dementia: Mother(V17.2, Z81.8) Status:Active Family history of cardiac di sorder: Mother(V17.49, Z82.49) Status:Active Family history of hypertensi on: Other(V17.49, Z82.49) Status:Active Family history of thyroid di sease: Other(V18.19, Z83.49) Status:Active Unknown Family Member Name Dates Details Family history of cardiac di sorder: Mother(V17.49, Z82.49) Status:Active Family history of hypertensi on: Other(V17.49, Z82.49) Status:Active Family history of thyroid di sease: Other(V18.19, Z83.49) Status:Active Family history of dementia: Mother(V17.2, Z81.8) Status:Active Family history of cerebrovas cular accident (CVA): Mother(V17.1, Z82.3) Status:Active Unknown Family Member Name Dates Details Family history of cerebrovas cular accident (CVA): Mother(V17.1, Z82.3) Status:Active Family history of dementia: Mother(V17.2, Z81.8) Status:Active Family history of cardiac di sorder: Mother(V17.49, Z82.49) Status:Active Family history of hypertensi on: Other(V17.49, Z82.49) Status:Active Family history of thyroid di sease: Other(V18.19, Z83.49) Status:Active Unknown Family Member Name Dates Details Family history of cerebrovas cular accident (CVA): Mother(V17.1, Z82.3) Status:Active Family history of dementia: Mother(V17.2, Z81.8) Status:Active Family history of cardiac di sorder: Mother(V17.49, Z82.49) Status:Active Family history of hypertensi on: Other(V17.49, Z82.49) Status:Active Family history of thyroid di sease: Other(V18.19, Z83.49) Status:Active Unknown Family Member Name Dates Details Family history of dementia: Mother(V17.2, Z81.8) Status:Active Family history of cerebrovas cular accident (CVA): Mother(V17.1, Z82.3) Status:Active Family history of cardiac di sorder: Mother(V17.49, Z82.49) Status:Active Family history of hypertensi on: Other(V17.49, Z82.49) Status:Active Family history of thyroid di sease: Other(V18.19, Z83.49) Status:Active Unknown Family Member Name Dates Details Family history of cerebrovas cular accident (CVA): Mother(V17.1, Z82.3) Status:Active Family history of dementia: Mother(V17.2, Z81.8) Status:Active Family history of cardiac di sorder: Mother(V17.49, Z82.49) Status:Active Family history of hypertensi on: Other(V17.49, Z82.49) Status:Active Family history of thyroid di sease: Other(V18.19, Z83.49) Status:Active Unknown Family Member Name Dates Details Family history of cerebrovas cular accident (CVA): Mother(V17.1, Z82.3) Status:Active Family history of dementia: Mother(V17.2, Z81.8) Status:Active Family history of cardiac di sorder: Mother(V17.49, Z82.49) Status:Active Family history of hypertensi on: Other(V17.49, Z82.49) Status:Active Family history of thyroid di sease: Other(V18.19, Z83.49) Status:Active Unknown Family Member Name Dates Details Family history of cerebrovas cular accident (CVA): Mother(V17.1, Z82.3) Status:Active Family history of dementia: Mother(V17.2, Z81.8) Status:Active Family history of cardiac di sorder: Mother(V17.49, Z82.49) Status:Active Family history of hypertensi on: Other(V17.49, Z82.49) Status:Active Family history of thyroid di sease: Other(V18.19, Z83.49) Status:Active Unknown Family Member Name Dates Details Family history of cerebrovas cular accident (CVA): Mother(V17.1, Z82.3) Status:Active Family history of dementia: Mother(V17.2, Z81.8) Status:Active Family history of cardiac di sorder: Mother(V17.49, Z82.49) Status:Active Family history of hypertensi on: Other(V17.49, Z82.49) Status:Active Family history of thyroid di sease: Other(V18.19, Z83.49) Status:Active Unknown Family Member Name Dates Details Family history of cerebrovas cular accident (CVA): Mother(V17.1, Z82.3) Status:Active Family history of dementia: Mother(V17.2, Z81.8) Status:Active Family history of cardiac di sorder: Mother(V17.49, Z82.49) Status:Active Family history of hypertensi on: Other(V17.49, Z82.49) Status:Active Family history of thyroid di sease: Other(V18.19, Z83.49) Status:Active Unknown Family Member Name Dates Details Family history of cerebrovas cular accident (CVA): Mother(V17.1, Z82.3) Status:Active Family history of dementia: Mother(V17.2, Z81.8) Status:Active Family history of cardiac di sorder: Mother(V17.49, Z82.49) Status:Active Family history of hypertensi on: Other(V17.49, Z82.49) Status:Active Family history of thyroid di sease: Other(V18.19, Z83.49) Status:Active Unknown Family Member Name Dates Details Family history of cerebrovas cular accident (CVA): Mother(V17.1, Z82.3) Status:Active Family history of dementia: Mother(V17.2, Z81.8) Status:Active Family history of cardiac di sorder: Mother(V17.49, Z82.49) Status:Active Family history of hypertensi on: Other(V17.49, Z82.49) Status:Active Family history of thyroid di sease: Other(V18.19, Z83.49) Status:Active Unknown Family Member Name Dates Details Family history of cerebrovas cular accident (CVA): Mother(V17.1, Z82.3) Status:Active Family history of dementia: Mother(V17.2, Z81.8) Status:Active Family history of thyroid di sease: Other(V18.19, Z83.49) Status:Active Family history of hypertensi on: Other(V17.49, Z82.49) Status:Active Family history of cardiac di sorder: Mother(V17.49, Z82.49) Status:Active Unknown Family Member Name Dates Details Family history of cerebrovas cular accident (CVA): Mother(V17.1, Z82.3) Status:Active Family history of dementia: Mother(V17.2, Z81.8) Status:Active Family history of thyroid di sease: Other(V18.19, Z83.49) Status:Active Family history of hypertensi on: Other(V17.49, Z82.49) Status:Active Family history of cardiac di sorder: Mother(V17.49, Z82.49) Status:Active Unknown Family Member Name Dates Details Family history of cerebrovas cular accident (CVA): Mother(V17.1, Z82.3) Status:Active Family history of dementia: Mother(V17.2, Z81.8) Status:Active Family history of thyroid di sease: Other(V18.19, Z83.49) Status:Active Family history of hypertensi on: Other(V17.49, Z82.49) Status:Active Family history of cardiac di sorder: Mother(V17.49, Z82.49) Status:Active Unknown Family Member Name Dates Details Family history of cerebrovas cular accident (CVA): Mother(V17.1, Z82.3) Status:Active Family history of dementia: Mother(V17.2, Z81.8) Status:Active Family history of cardiac di sorder: Mother(V17.49, Z82.49) Status:Active Family history of hypertensi on: Other(V17.49, Z82.49) Status:Active Family history of thyroid di sease: Other(V18.19, Z83.49) Status:Active Advance Directives No Advanced Directives Records FoundNo Advanced Directives Records FoundNo Advanced Directives Records FoundNo Advanced Directives Records FoundNo Advanced Directives Records FoundNo Advanced Directives Records Found Chief Complaint dropped off Fobt* 3 MO FUV - STAGE 3 CKD * LABS 07/01/2021 * Pt is here today for a 6 month check up, she is also due for her [facility] wellness. Review labs. This note was generated by using [employer] software. It may contain errors in wording, punctuate, or spelling. * She is here today for her 6-month checkup and we also completed her annual Medicare wellness visit.We did conduct a review of systems and we went through the Medicare questionnaire. Her blood pressure is good today and she has managed to lose some weight since her last visit. We have discussed the importance of eating a healthy diet and trying to stay as physically active as possible. We talked about her struggles with her autonomic dysfunction and her peripheral neuropathy. She has seen a specialist for her condition. She does not tolerate exercise well and her comment to me was I have beenfeeling tired since the year 2004. We did review outside lab work from October 30. Her numbers look great. We also talked about her sleep apnea and she does wear her CPAP device faithfully and has derived some benefit from its use. We talked about her kidney function and she has followed with a kidney specialist. Her numbers are quite stable and her last EGFR was calculated at 60. She is scheduled to have an ultrasound of her left breast in early December. She had a mass there that we believe was probably a bruise and she states it has gone down in size since when she 1st discovered it. I told her that if she does not hear from us regarding her ultrasound to give us a call after 1 week. She also received this season's flu vaccine at [facility] in October. She is also received the COVID-19 vaccination series. We did screen for depression and she has no signs of depression at this time. She also has advanced directives including a living will and power of consumer attorney for healthcare. She has hadno falls in the last 6 months and we talked about fall prevention. I will give her handout that goes over tips to reduce her risk of falls. 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 She is highly independent and does all of her own finances and manages her own medications. We talked about cancer screening and preventative vaccines. I have recommended the shingles vaccine. If everything goes according to plan we will see her back in 6 months for routine visit and sooner if any problems. * 7 MONTH FOLLOW-UP- CKD, HTN * LAB REVIEW 01/28/2022 * 6 mo. This note was generated by using [employer] software. It may contain errors in wording, punctuate, or spelling. * She is here today for her 6-month checkup. Unfortunately her blood pressure has been higher than desirable. She states while visiting her oncology specialist she also had an elevated number. She has been seen by Dr. Velazquez for her blood pressure and I am going to message him about what we could do to adjust her medication. I told her that I would get back with her either tomorrow or Thursday. We will make the change and she will be checking blood pressures at home regularly with her own machine. Otherwise she does complain of chronic fatigue. We went over the results of her most recent lipid profile and overall I am pleased with her numbers. Her triglycerides are little high but she sounds like shefollows a pretty good diet. I will give her handout that goes over tips for cholesterol lowering diet. We talked about the influence of genetics on her cholesterol profile. We also discussed her chronic kidney disease and her most recent laboratory test result was very good. Her numbers have been quite stable. She also states she has felt a tiny nodule and points to the right side of her neck just below the jawline. She states she has noticed this nodule for many years and she does not feel like it is changing at all. When I palpate the region I do feel a slight swelling in that region. I explained to her that if its been there for years and not changing then I am not suspicious that it is something dangerous however if she felt like it was changing or causing symptoms we could proceed with an ultrasound as an initial part of the evaluation.. We also discussed her history of abnormal danitza mograms and ultrasounds and she is due for her regular screening mammogram. We will help get that ordered.. * We did conduct a review of systems and we also talked about colorectal cancer screening. We will begiving her a fecal occult blood test kit today. * Pt is here today for a 3 week follow up. This note was generated by using [employer] software. It may contain errors in wording, punctuate, or spelling. * She is here today for follow-up. When we saw her last time her blood pressure was quite exaggerated. We contacted Dr. Velazquez about suggestions on changing medication and agreed that if necessary we would go up on the dose of spironolactone. She actually did not do that but she was checking blood pres sures and getting better readings. Today her reading is excellent. She states that her current blood pressure monitor does not appear to be correlating well with what we got today so I recommended that she get a new brand such as Omron. She also completed her mammogram which came back within acceptable range and she has her fecal occult blood test kit at home and plans on completing it very soon and dropping it off. We also discussed the flu vaccine and she will get that at [facility] because we did not have high-dose flu vaccine here. Otherwise if everything goes according to plan we will see her back in 6 months. cervical dystonia plus tremorcervical dystonia plus tremor1 YEAR FUV Reason for Referral Specialty Diagnoses / Procedures Referred By Cullen andrews Referred To Contact Radiology Diagnoses Encounter for screening mammogram for malignant neoplasm of breast Procedures BI mammo bilateral screening tomosynthesis [facility] [address] [facility] [place] [address] Referral ID Status Reason Start Date Expiration Date Visits Requested Visits Authorized [id number] Authorized Perform Procedure 02/09/2023 08/08/2023 1 1 Specialty Diagnoses / Procedures Referred By Cullen t Referred To Contact Radiology Diagnoses Menopause Procedures XR DEXA bone density Daisy Espino DO [address] [place] [address] Referral ID Status Reason Start Date Expiration Date Visits Requested Visits Authorized [id number] Authorized Perform Procedure 02/09/2023 08/08/2023 1 1 Specialty Diagnoses / Procedures Referred By Cullen andrews Referred To Contact Primary Care Diagnoses Mixed hyperlipidemia Stage 3a chronic kidney disease Secondary hypertension Class 3 severe obesity due to excess calories without serious comorbidity with body mass index (BMI) of 40.0 to 44.9 in adult (CMS/HCC) Procedures Follow Up In Primary Care Daisy Espino DO [address] [place] [address] Referral ID Status Reason Start Date Expiration Date V isits Requested Visits Authorized [id number] Authorized 02/09/2023 08/08/2023 1 1 Additional Source Comments INFORMATION SOURCE (unrecogn ized section and content) DATE CREATED AUTHOR AUTHOR'S ORGANIZ ATION 12/19/2022 [facility] DATE CREATED AUTHOR AUTHOR'S ORGANIZ ATION 01/31/2023 [facility] DATE CREATED AUTHOR AUTHOR'S ORGANIZ ATION 04/17/2023 [facility] DATE CREATED AUTHOR AUTHOR'S ORGANIZ ATION 08/21/2023 [facility] DATE CREATED AUTHOR AUTHOR'S ORGANIZ ATION 01/07/2024 [facility] Care Teams (unrecognized sec tion and content) Hospice Massage Therapist Relationship Specialty Start Date End Date Daisy Espino, [address] [id number] PCP - General 04/09/18 Daisy Espino, [address] [phone] PCP - [facility] Attributed Provider 11/09/21 Hospice Massage Therapist Relationship Specialty Start Date End Date Daisy Espino DO [address] [place] [address] PCP - General 04/09/18 Daisy Espino, DO [address] [place] [address] PCP - [facility] Attributed Provider 11/09/21 Reason for Visit (unrecogniz ed section and content) FOR RECORDS PERTAINING TO PATIENTS WHO ARE OR HAVE BEEN ENROLLED IN A CHEMICAL DEPENDENCY/SUBSTANCEABUSE PROGRAM, SOME INFORMATION MAY BE OMITTED. This clinical summary was aggregated from multiple sources. Caution should be exercised in using it in the provision of clinical care. This summary normalizes information from multiple sources, and as a consequence, information in this document may materially change the coding, format and clinical context of patient data. In addition, data may be omitted in some cases. CLINICAL DECISIONS SHOULD BE BASED ON THE PRIMARY CLINICAL RECORDS. [facility] [employer] [facility]. provides no warranty or guarantee of the accuracy or completeness of information in this document.
== END | disposition home or self-care (01) ==
LOC: MTLAB 11:41
PROVIDERS: PCP Internal Medicine; Referring Provider Internal Medicine Rheumatology; Visit Provider Internal Medicine Rheumatology
DX: M06.4 Inflammatory polyarthropathy (principal); Z79.899 Other long term (current) drug therapy; M79.7 Fibromyalgia
CPT/HCPCS: 36415; 80053; 85025

== ENCOUNTER → 2024-04-20 | Outpatient (CLI) | payer MEDICARE, BC, SELFPAY ==
[2024-04-20 17:42] LABS: Absolute Lymphocyte Count 2.01 X10^3/uL (0.83-4.51); Absolute Neutrophil Count 4.4 X10^3/uL (2.0-7.7); Basophil# 0.04 X10^3/uL; Basophil% 0.6 % (0-1); Eosinophil# 0.16 X10^3/uL; Eosinophils% 2.3 % (0-5); Hematocrit 45.8 % (37-47); Hemoglobin 15.6 g/dL (12.0-15.0); Lymphocyte # 2.01 X10^3/ul (0.83-4.51); Lymphocyte % 28.3 % (19-41); Mean Corp Hgb Conc 34.1 g/dL (32-36); Mean Corpuscular Hgb 31.7 pg (27.0-32.0); Mean Corpuscular Volume 93.1 fL (81-99); Monocyte# 0.53 X10^3/uL; Monocyte% 7.5 % (0-10); NRBC Flagged by Analyzer 0 % (0-5); Neutrophil # 4.36 X10^3/uL (2.7-7.7); Neutrophil % 61.2 % (47-70); Platelet Count 276 K/mm3 (150-450); RBC Distribution Width CV 11.9 % (11.6-14.6); RBC Distribution Width SD 40.9 fl (35.1-43.9); Red Blood Count 4.92 M/mm3 (4.2-5.4); White Blood Count 7.1 K/mm3 (4.4-11.0)
[2024-04-20 18:14] LABS: ALB/GLOB Ratio 1.2 RATIO (0.9-2.4); AST(SGOT) 17 U/L (15-37); Alanine Aminotransfer ALT/SGPT 27 U/L (13-56); Albumin, Serum 4.3 g/dL (3.2-5.0); Alkaline Phosphatase 73 U/L (45-117); Anion Gap 9 (5-15); BUN 10 mg/dL (7-18); BUN/Creat Ratio 10.9 RATIO (10-20); Calcium,Total 9.5 mg/dL (8.5-10.1); Chloride 93 mmol/L (98-107); Creatinine, Serum 0.92 mg/dL (0.55-1.02); EST Glomerular Filtration Rate 65 mL/min (>60); Est Glom Filt Rate - Afr Amer 78 mL/min (>60); Globulin 3.5 g/dL (2.2-4.2); Glucose 98 mg/dL (74-106); Potassium 3.6 mmol/L (3.5-5.1); Protein, Total 7.8 g/dL (6.4-8.2); Sodium Level 130 mmol/L (136-145)
== END | disposition home or self-care (01) ==
LOC: MTLAB 14:29
PROVIDERS: PCP Internal Medicine; Referring Provider Internal Medicine Rheumatology; Visit Provider Internal Medicine Rheumatology
DX: M06.4 Inflammatory polyarthropathy (principal); M79.7 Fibromyalgia; Z79.899 Other long term (current) drug therapy
CPT/HCPCS: 36415; 80053; 85025

== ENCOUNTER → 2024-06-15 | Outpatient (CLI) | payer MEDICARE, BC, SELFPAY ==
[2024-06-15 15:18] LABS: Absolute Neutrophil Count 3.8 X10^3/uL (2.0-7.7); Basophil# 0.04 X10^3/uL; Basophil% 0.6 % (0-1); Eosinophil# 0.11 X10^3/uL; Eosinophils% 1.6 % (0-5); Hematocrit 44.5 % (37-47); Hemoglobin 14.7 g/dL (12.0-15.0); Lymphocyte % 32.9 % (19-41); Mean Corpuscular Hgb 31.1 pg (27.0-32.0); Mean Corpuscular Volume 94.3 fL (81-99); Mean Platelet Vol. 10.6 fl (6.2-12.0); Monocyte# 0.74 X10^3/uL; Monocyte% 10.6 % (0-10); NRBC Flagged by Analyzer 0 % (0-5); Neutrophil # 3.77 X10^3/uL (2.7-7.7); Neutrophil % 53.9 % (47-70); Platelet Count 262 K/mm3 (150-450); RBC Distribution Width CV 13.3 % (11.6-14.6); RBC Distribution Width SD 46.6 fl (35.1-43.9); Red Blood Count 4.72 M/mm3 (4.2-5.4)
[2024-06-15 15:53] LABS: AST(SGOT) 22 U/L (15-37); Alanine Aminotransfer ALT/SGPT 33 U/L (13-56); Alkaline Phosphatase 69 U/L (45-117); Anion Gap 9 (5-15); BUN 15 mg/dL (7-18); BUN/Creat Ratio 16.7 RATIO (10-20); Calcium,Total 9.4 mg/dL (8.5-10.1); Chloride 94 mmol/L (98-107); EST Glomerular Filtration Rate 66 mL/min (>60); Est Glom Filt Rate - Afr Amer 80 mL/min (>60); Globulin 3.9 g/dL (2.2-4.2); Glucose 98 mg/dL (74-106); Potassium 3.3 mmol/L (3.5-5.1); Protein, Total 7.9 g/dL (6.4-8.2); Sodium Level 130 mmol/L (136-145)
== END | disposition home or self-care (01) ==
LOC: MTLAB 11:50
PROVIDERS: PCP Internal Medicine; Referring Provider Internal Medicine Rheumatology; Visit Provider Internal Medicine Rheumatology
DX: M06.4 Inflammatory polyarthropathy (principal); M79.7 Fibromyalgia; M35.00 Sjogren syndrome, unspecified; M18.11 Unilateral primary osteoarthritis of first carpometacarpal joint, right hand; Z79.899 Other long term (current) drug therapy
CPT/HCPCS: 36415; 80053; 85025

== ENCOUNTER → 2024-09-08 | Outpatient (CLI) | payer MEDICARE, BC, SELFPAY ==
[2024-09-08 10:21] LABS: Absolute Lymphocyte Count 2.69 X10^3/uL (0.83-4.51); Basophil# 0.05 X10^3/uL; Basophil% 0.7 % (0-1); Eosinophil# 0.13 X10^3/uL; Eosinophils% 1.7 % (0-5); Hematocrit 44.6 % (37-47); Hemoglobin 14.2 g/dL (12.0-15.0); Lymphocyte # 2.69 X10^3/ul (0.83-4.51); Lymphocyte % 36.1 % (19-41); Mean Corp Hgb Conc 31.8 g/dL (32-36); Mean Corpuscular Hgb 30.9 pg (27.0-32.0); Mean Corpuscular Volume 97.2 fL (81-99); Mean Platelet Vol. 10.4 fl (6.2-12.0); Monocyte# 0.61 X10^3/uL; Monocyte% 8.2 % (0-10); NRBC Flagged by Analyzer 0 % (0-5); Neutrophil # 3.95 X10^3/uL (2.7-7.7); Neutrophil % 52.9 % (47-70); Platelet Count 235 K/mm3 (150-450); RBC Distribution Width CV 12.9 % (11.6-14.6); Red Blood Count 4.59 M/mm3 (4.2-5.4); White Blood Count 7.5 K/mm3 (4.4-11.0)
[2024-09-08 10:49] LABS: ALB/GLOB Ratio 1.1 RATIO (0.9-2.4); AST(SGOT) 14 U/L (15-37); Alanine Aminotransfer ALT/SGPT 29 U/L (13-56); Alkaline Phosphatase 89 U/L (45-117); Anion Gap 4 (5-15); BUN 16 mg/dL (7-18); BUN/Creat Ratio 18.6 RATIO (10-20); Calcium,Total 9.2 mg/dL (8.5-10.1); Chloride 104 mmol/L (98-107); Creatinine, Serum 0.86 mg/dL (0.55-1.02); EST Glomerular Filtration Rate 69 mL/min (>60); Est Glom Filt Rate - Afr Amer 84 mL/min (>60); Globulin 3.8 g/dL (2.2-4.2); Glucose 94 mg/dL (74-106); Potassium 4.1 mmol/L (3.5-5.1); Protein, Total 7.8 g/dL (6.4-8.2); Sodium Level 136 mmol/L (136-145)
== END | disposition home or self-care (01) ==
PROVIDERS: PCP Internal Medicine; Referring Provider Internal Medicine Rheumatology; Visit Provider Internal Medicine Rheumatology
DX: M06.4 Inflammatory polyarthropathy (principal); M79.7 Fibromyalgia; M18.11 Unilateral primary osteoarthritis of first carpometacarpal joint, right hand; Z79.899 Other long term (current) drug therapy
CPT/HCPCS: 36415; 80053; 85025

== ENCOUNTER → 2024-12-01 | Outpatient (CLI) | payer MEDICARE, OTHER, SELFPAY ==
[2024-12-01 12:32] LABS: ALB/GLOB Ratio 1.1 RATIO (0.9-2.4); AST(SGOT) 14 U/L (15-37); Alanine Aminotransfer ALT/SGPT 30 U/L (13-56); Albumin, Serum 3.9 g/dL (3.2-5.0); Alkaline Phosphatase 76 U/L (45-117); Anion Gap 3 (5-15); BUN 15 mg/dL (7-18); BUN/Creat Ratio 16.5 RATIO (10-20); Calcium,Total 9.5 mg/dL (8.5-10.1); Chloride 106 mmol/L (98-107); Creatinine, Serum 0.91 mg/dL (0.55-1.02); EST Glomerular Filtration Rate 65 mL/min (>60); Est Glom Filt Rate - Afr Amer 78 mL/min (>60); Globulin 3.7 g/dL (2.2-4.2); Glucose 106 mg/dL (74-106); Potassium 5.3 mmol/L (3.5-5.1); Protein, Total 7.6 g/dL (6.4-8.2); Sodium Level 138 mmol/L (136-145)
[2024-12-01 12:36] LABS: Absolute Lymphocyte Count 1.83 X10^3/uL (0.83-4.51); Absolute Neutrophil Count 3.8 X10^3/uL (2.0-7.7); Basophil# 0.04 X10^3/uL; Basophil% 0.6 % (0-1); Eosinophil# 0.17 X10^3/uL; Eosinophils% 2.6 % (0-5); Hemoglobin 14.2 g/dL (12.0-15.0); Lymphocyte # 1.83 X10^3/ul (0.83-4.51); Lymphocyte % 27.9 % (19-41); Mean Corp Hgb Conc 32.3 g/dL (32-36); Mean Corpuscular Volume 96.1 fL (81-99); Monocyte% 10.7 % (0-10); NRBC Flagged by Analyzer 0 % (0-5); Neutrophil % 57.9 % (47-70); Platelet Count 238 K/mm3 (150-450); RBC Distribution Width CV 12.9 % (11.6-14.6); RBC Distribution Width SD 45.9 fl (35.1-43.9); Red Blood Count 4.58 M/mm3 (4.2-5.4); White Blood Count 6.6 K/mm3 (4.4-11.0)
== END | disposition home or self-care (01) ==
LOC: MTLAB 10:57
PROVIDERS: PCP Internal Medicine; Referring Provider Internal Medicine Rheumatology; Visit Provider Internal Medicine Rheumatology
DX: M06.4 Inflammatory polyarthropathy (principal); M79.7 Fibromyalgia; M35.00 Sjogren syndrome, unspecified; Z79.899 Other long term (current) drug therapy
CPT/HCPCS: 36415; 80053; 85025

== ENCOUNTER → 2025-03-21 | Outpatient (CLI) | payer MEDICARE, SELFPAY ==
[2025-03-21 12:21] LABS: Absolute Lymphocyte Count 2.54 X10^3/uL (0.83-4.51); Absolute Neutrophil Count 3.3 X10^3/uL (2.0-7.7); Basophil# 0.05 X10^3/uL; Basophil% 0.7 % (0-1); Eosinophil# 0.11 X10^3/uL; Eosinophils% 1.6 % (0-5); Hemoglobin 14.3 g/dL (12.0-15.0); Lymphocyte # 2.54 X10^3/ul (0.83-4.51); Mean Corp Hgb Conc 32.5 g/dL (32-36); Mean Corpuscular Hgb 31.6 pg (27.0-32.0); Mean Corpuscular Volume 97.1 fL (81-99); Mean Platelet Vol. 10.5 fl (6.2-12.0); Monocyte# 0.64 X10^3/uL; Monocyte% 9.6 % (0-10); NRBC Flagged by Analyzer 0 % (0-5); Neutrophil # 3.33 X10^3/uL (2.7-7.7); Neutrophil % 49.8 % (47-70); Platelet Count 233 K/mm3 (150-450); RBC Distribution Width CV 13.1 % (11.6-14.6); RBC Distribution Width SD 46.5 fl (35.1-43.9); Red Blood Count 4.53 M/mm3 (4.2-5.4); White Blood Count 6.7 K/mm3 (4.4-11.0)
[2025-03-21 12:49] LABS: ALB/GLOB Ratio 1.5 RATIO (0.9-2.4); AST(SGOT) 22 U/L (<=31); Alanine Aminotransfer ALT/SGPT 18 U/L (<=34); Albumin, Serum 4.5 g/dL (3.4-4.8); Alkaline Phosphatase 70 U/L (35-104); Anion Gap 13 (5-15); BUN 15 mg/dL (4-19); BUN/Creat Ratio 18.2 RATIO (10-20); Calcium,Total 9.5 mg/dL (7.6-11.0); Chloride 102 mmol/L (98-108); Creatinine, Serum 0.82 mg/dL (0.70-1.20); EST Glomerular Filtration Rate 77 (>60); Glucose 84 mg/dL (70-99); Potassium 4.2 mmol/L (3.3-5.1); Protein, Total 7.5 g/dL (5.9-8.4); Sodium Level 139 mmol/L (133-145); Total Bilirubin 0.28 mg/dL (0.00-1.30)
== END | disposition home or self-care (01) ==
LOC: MTLAB 10:06
PROVIDERS: PCP Internal Medicine; Referring Provider Internal Medicine Rheumatology; Visit Provider Internal Medicine Rheumatology
DX: M06.4 Inflammatory polyarthropathy (principal); M79.7 Fibromyalgia; M35.00 Sjogren syndrome, unspecified
CPT/HCPCS: 36415; 80053; 85025

== ENCOUNTER → 2025-06-12 | Outpatient (CLI) | payer MEDICARE, SELFPAY ==
[2025-06-12 15:27] LABS: Hematocrit 45.0 % (37-47); Hemoglobin 14.6 g/dL (12.0-15.0); Immature Granulocytes Count 0.020 X10^3/uL (0.0-0.0); Mean Corp Hgb Conc 32.4 g/dL (32-36); Mean Corpuscular Volume 97.0 fL (81-99); Mean Platelet Vol. 10.2 fl (6.2-12.0); NRBC Flagged by Analyzer 0 % (0-5); Platelet Count 249 K/mm3 (150-450); RBC Distribution Width CV 12.6 % (11.6-14.6); RBC Distribution Width SD 45.2 fl (35.1-43.9); Red Blood Count 4.64 M/mm3 (4.2-5.4); White Blood Count 6.7 K/mm3 (4.4-11.0)
[2025-06-12 16:14] LABS: AST(SGOT) 23 U/L (<=31); Alanine Aminotransfer ALT/SGPT 24 U/L (<=34); Albumin, Serum 4.7 g/dL (3.4-4.8); Alkaline Phosphatase 73 U/L (35-104); Anion Gap 13 (5-15); BUN 14 mg/dL (4-19); BUN/Creat Ratio 16.1 RATIO (10-20); Calcium,Total 9.8 mg/dL (7.6-11.0); Carbon Dioxide 26.2 mmol/L (21.0-32.0); Chloride 103 mmol/L (98-108); Globulin 2.8 g/dL (2.2-4.2); Glucose 98 mg/dL (70-99); Potassium 5.0 mmol/L (3.3-5.1)
== END | disposition home or self-care (01) ==
LOC: MTLAB 11:34
PROVIDERS: PCP Internal Medicine; Referring Provider Internal Medicine Rheumatology; Visit Provider Internal Medicine Rheumatology
DX: M06.4 Inflammatory polyarthropathy (principal); M79.7 Fibromyalgia; M35.00 Sjogren syndrome, unspecified; M18.11 Unilateral primary osteoarthritis of first carpometacarpal joint, right hand; Z79.899 Other long term (current) drug therapy
CPT/HCPCS: 36415; 80053; 85025

== ENCOUNTER → 2025-09-18 | Outpatient (CLI) | payer MEDICARE, SELFPAY ==
[2025-09-18 12:02] LABS: Hematocrit 44.6 % (37-47); Hemoglobin 14.7 g/dL (12.0-15.0); Immature Granulocytes Count 0.020 X10^3/uL (0.0-0.0); Mean Corp Hgb Conc 33.0 g/dL (32-36); Mean Corpuscular Volume 94.9 fL (81-99); Mean Platelet Vol. 9.9 fl (6.2-12.0); NRBC Flagged by Analyzer 0 % (0-5); Platelet Count 204 K/mm3 (150-450); RBC Distribution Width CV 12.4 % (11.6-14.6); RBC Distribution Width SD 43.4 fl (35.1-43.9); Red Blood Count 4.70 M/mm3 (4.2-5.4); White Blood Count 7.8 K/mm3 (4.4-11.0)
[2025-09-18 12:25] LABS: AST(SGOT) 21 U/L (<=31); Alanine Aminotransfer ALT/SGPT 22 U/L (<=34); Albumin, Serum 4.5 g/dL (3.4-4.8); Alkaline Phosphatase 72 U/L (35-104); Anion Gap 12 (5-15); BUN 15 mg/dL (4-19); BUN/Creat Ratio 18.6 RATIO (10-20); Calcium,Total 9.4 mg/dL (7.6-11.0); Carbon Dioxide 24.5 mmol/L (21.0-32.0); Chloride 103 mmol/L (98-108); Globulin 2.8 g/dL (2.2-4.2); Glucose 96 mg/dL (70-99); Potassium 4.2 mmol/L (3.3-5.1)
== END | disposition home or self-care (01) ==
LOC: MTLAB 10:43
PROVIDERS: PCP Internal Medicine; Referring Provider Internal Medicine Rheumatology; Visit Provider Internal Medicine Rheumatology
DX: M06.4 Inflammatory polyarthropathy (principal); Z79.899 Other long term (current) drug therapy; M79.7 Fibromyalgia
CPT/HCPCS: 36415; 80053; 85025